=== PATIENT | male | born 1950 | race Caucasian/White ===

== ENCOUNTER 2025-02-08 09:01 | Outpatient (CLI) | payer MEDICARE, SELFPAY ==
--- OUTSIDE RECORDS SUMMARY | 2025-01-23 13:20 | XMS_ITS | Encounter Summary ---
Author Organization [facility] Address [address] [place] [address] Care Team Providers Care Dietetic Tech Name Role Phone Randi Mackenzie APRN Primary Care Provider Reason for Referral * Consultation (Routine) - Authorized Specialty Diagnoses / Procedures Referred By Nikko carlos Referred To Contact Orthopaedic Surgery Diagnoses Chronic pain of both shoulders [place] [address] Phone: tel: fax: Referral ID Status Reason Start Date Expiration Date Visits Requested Visits Authorized [id number] Authorized Specialty Services Required 01/23/2025 07/25/2026 [address] sapp needs shoulders injected Reason for Visit * Reason Comments Shoulder Pain Left shoulder to elb ow pain Encounter Details Date Type Department Care Team (Late st Contact Info) Description 01/23/2025 1:20 PM EDT Office Visit [facility] [place] [address] [place] [address] Chronic pain of both shoulders (Primary Dx) Social History Tobacco Use Types Packs/Day Years Used Date Smoking Tobacco: Former Cigarettes 1 60 Passive Smoke Exposure: Current Smokeless Tobacco: Never Tobacco Cessation:Counseling Given: Not Answered Alcohol Use Standard Drinks/Week Comments No 0 (1 standard drink = 0.6 oz pur e alcohol) PHQ-2 Answer Date Recorded Patient Health Questionnaire-2 Score 0 01/23/2025 PHQ-9 Answer Date Recorded Patient Health Questionnaire-9 Score 0 01/23/2025 Humiliation, Afraid, Rape, and Kick questionnair e Answer Date Recorded Within the last year, have y ou been afraid of your partner or ex-partner? No 01/23/2025 Within the last year, have y ou been humiliated or emotionally abused in other ways by your partner or ex-partner? No Within the last year, have y ou been kicked, hit, slapped, or otherwise physically hurt by your partner or ex-partner? No 01/23/2025 Within the last year, have y ou been raped or forced to have any kind of sexual activity by your partner or ex-partner? No 01/23/2025 Hunger Vital Sign Answer Date Recorded Within the past 12 months, y ou worried that your food would run out before you got the money to buy more. Never true 01/24/20 25 Within the past 12 months, t he food you bought just didn't last and you didn't have money to get more. Never true 01/23/2025 PRAPARE - Transportation Answer Date Re corded In the past 12 months, has l ack of transportation kept you from medical appointments or from getting medications? No 01/14 In the past 12 months, has l ack of transportation kept you from meetings, work, or from getting things needed for daily living? No 01/23/2025 Housing Stability Vital Sign Answer Andrew e Recorded In the last 12 months, was t here a time when you were not able to pay the mortgage or rent on time? No 01/23/2025 In the past 12 months, how m any times have you moved where you were living? 0 01/23/2025 At any time in the past 12 m [facility], were you homeless or living in a [place] facility (including now)? No 01/23/2025 [facility] Utilities Answer Date Recorded In the past 12 months has th e electric, gas, oil, or water [email or web address] threatened to shut off services in your home? No 01/23/2025 Safety and Environment Answer Date Johnny rded Do you worry that your child may have been physically abused? No 12/28/2023 Do you worry that your child may have been sexua lly abused? No 12/28/2023 Are there any guns kept in o r around your home or where your child spends time? No 12/28/2023 Guns Unloaded or Locked Away Not on file PHQ-2A Answer Date Recorded Patient Health Questionnaire-2 Score 2 11/03/2022 Sex and Gender Information Value Date Recorded Sex Assigned at Male 05/02/2021 6:02 PM EST Legal Sex Male 6:20 PM EDT Gender Identity Male 05/02/2021 6:02 PM EST Sexual Orientation Not on file documented as of this encounter Last Filed Vital Signs Vital Sign Reading Time Taken Comments Blood Pressure 92/60 01/23/2025 1:17 PM EDT Pulse 71 01/23/2025 1:17 PM EDT Temperature 36.8 C (98.3 F) 01/23/2025 1:17 PM EDT Respiratory Rate 18 01/23/2025 1:17 PM EDT Oxygen Saturation 96% 01/23/2025 1:1 7 PM EDT 3 liters of oxygen nasal canula Inhaled Oxygen Concentration - - Weight 72.6 kg (160 lb) 01/23/2025 1:17 PM EDT Height 172.7 cm (5' 8 ) 01/23/2025 1:17 PM EDT Body Mass Index 24.33 01/23/2025 1:17 PM EDT documented in this encounter Functional Status * Over the past 2 weeks, how often have you been bothered by any of the following problems? Question Answer Date of Assessment Author Little interest or pleasure in doing things Not at all 01/23/2025 1:28 PM EDT Rosaura Smalls Feeling down, depressed, or hopeless Not at all 01/23/2025 1:28 PM EDT Rosaura Smalls Patient Health Questionnaire -2 Score 0 01/23/2025 1:28 PM EDT Rosaura Smalls * Question Answer Date of Assessment Author Trouble falling or staying a sleep, or sleeping too much Not at all 01/23/2025 1:28 PM Rosaura Gann Feeling tired or having cinthia le energy Not at all 01/23/2025 1:28 PM Rosaura Gann Poor appetite or overeating Not at all 01/23/2025 1: 28 PM Rosaura Gann Feeling bad about yourself - or that you are a failure or have let yourself or your family down Not at all 01/23/2025 1:28 PM Rosaura Gann Trouble concentrating on thi ngs, such as reading the newspaper or watching television Not at all 01/23/2025 1:28 PM Rosaura Gann Moving or speaking so slowly that other people could have noticed? Or the opposite - being so fidgety or restless that you have been moving around a lot more than usual. Not at all 01/23/2025 1:28 PM Rosaura Nunez Thoughts that you would be b shelli off or hurting yourself in some way Not at all 01/23/2025 1:28 PM Rosaura Gann Patient Health Questionnaire -9 Score 0 01/23/2025 1:28 PM Rosaura Gann * Calculated C-SSRS Risk Score (Lifetime/Recent) Answer Date of Assessment Author No Risk Indicated 01/23/2025 1:29 PM Rosaura Nunez * How difficult have these problems made it for you to do your work, take care of things at home, or get along with other people? Answer Date of Assessment Author Not difficult at all 01/23/2025 1:28 PM Rosaura Dejesus * Question Answer Date of Assessment Author 1. Wish to be (Past 1 Month) No 025 1:29 PM Rosaura Gann 2. Non-Specific Active Suici ronal Thoughts (Past 1 Month) No 01/23/2025 1:29 PM Rosaura Gann 6. Suicidal Behavior (Lifetime) No 1:29 PM Rosaura Gann documented as of this encounter Miscellaneous Notes * Clinician Note - Rosaura Smalls - 01/23/2025 1:20 PM EDT Fall risk protocol in place, pt in chair with arms * Progress Notes - Gurdeep Randisubhash Ang APRN - 01/23/2025 1:20 PM EDT Office Progress Note Subjective Corona Doherty is a 74 y.o. male who presents for Shoulder Pain (Left shoulder to elbow pain ). History of Present Illness The patient presents for evaluation of shoulder pain, back pain, and breathing issues. He reports experiencing sharp pain in his shoulders, which extends down to his elbow. This pain hasbeen present for approximately 6 months and affects his ability to perform tasks independently, such as getting up from a seated position. He finds some relief from the application of Biofreeze. An appointment with Dr. Cornelius is scheduled for next month to discuss potential steroid injections for his shoulder pain. His activity level is low, with most of his time spent sitting. He continues to experience back pain, and adjustments have been made to his treatment plan. He mentions a tingling sensation in his leg, which was alleviated by reducing the intensity of his treatment by one notch. His appetite is good, although he tends to eat more at night than during the day. His breathing appears to be normal, but he would like it to be checked during this visit. He saw Dr. Montesinos yesterday, who prescribed an additional medication. He was advised to take only one dose per day as it may cause dizziness, and to stop the medication if dizziness occurs. Diet: He tends to eat more at night than during the day. The following sections have been reviewed and updated during this encounter: Allergies Meds Objective Blood pressure 92/60, pulse 71, temperature 36.8 ??C (98.3 ??F), temperature source Oral, resp. rate 18, height 1.727 m (5' 8 ), weight 72.6 kg (160 lb), SpO2 96%. Body mass index is 24.33 kg/m??. Physical Exam Vitals and nursing note reviewed. Constitutional: Appearance: He is normal weight. Cardiovascular: Rate and Rhythm: Normal rate and regular rhythm. Pulses: Normal pulses. Heart sounds: Normal heart sounds. Pulmonary: Effort: Pulmonary effort is normal. Breath sounds: Normal breath sounds. Neurological: General: No focal deficit present. Mental Status: He is alert and oriented to person, place, and time. Psychiatric: Mood and Affect: Mood normal. Behavior: Behavior normal. Thought Content: Thought content normal. Judgment: Judgment normal. Assessment/Plan Diagnoses and all orders for this visit: Chronic pain of both shoulders - Ambulatory referral to Orthopaedic Surgery Assessment & Plan 1. Shoulder pain: - The patient's shoulder pain has been ongoing for approximately 6 months, characterized by sharp pain extending from the shoulders to the elbows. - A referral for steroid injections in the shoulder joints is recommended. He is advised to contactDr. Cornelius to discuss the possibility of shoulder injections during his upcoming appointment next month. If Dr. Cornelius is unable to provide the injections, arrangements will be made for them to be administered locally. On getting ready to leave changed mind will do with Dr sapp 2. Back pain: - The patient reports that his back pain persists, but adjustments to his treatment have been made to manage the pain and associated leg tingling. - He is advised to continue with the current management plan and monitor for any changes in symptoms. 3. Breathing issues: - A slight wheeze was noted on one side during the examination, but overall, his breathing is improved compared to previous visits. - He is advised to continue monitoring his breathing and report any significant changes. Verbal consent was obtained to use ambient listening technology to assist in the documentation of the encounter: yes documented in this encounter Plan of Treatment Scheduled Referrals Name Type Priority Associated Diagnoses Order Schedule Ambulatory referral to Orthopaedic Surgery Outpatient Referral Routine Chronic pain of both shoulders Ordered: 01/23/2025 documented as of this encounter Visit Diagnoses Diagnosis Chronic pain of both shoulders- Primary documented in this encounter Additional Health Concerns Assessment Noted Time PHQ-9 Depression Total Score: 0 01/24/20 25 1:28 PM EDT A fall risk assessment has been complete d for the patient 01/23/2025 1:27 PM EDT A Body Mass Index follow-up plan has been documented for the patient 01/23/2025 1:44 PM EDT documented as of this encounter Care Teams Dietetic Tech Relationship Specialty Start Date End Date Randi Mackenzie APRN [address] [place] [address] PCP - General 09/26/20 documented as of this encounter
--- OUTSIDE RECORDS SUMMARY | 2025-02-08 09:19 | XMS_ITS | Encounter Summary ---
Author Organization Healthcare Address [address] [place] [address] Care Team Providers Care Dandy Tender Name Role Phone Angel Tan APRN Primary Care Provider [phone] Gely Carreon LPN Unavailable Unavailable Encounter Details Date Type Department Care Team (Late st Contact Info) Description 09/28/2021 Outside Procedure External Location [address] [place] [address] Angel Tan EMBEDDED FIRMWARE DEVELOPER [address] [place] [address] Social History Tobacco Use Types Packs/Day Years Used Date Smoking Tobacco: Every Day Cigarettes 2 60 Smokeless Tobacco: Never Alcohol Use Standard Drinks/Week Comments No 0 (1 standard drink = 0.6 oz pur e alcohol) PHQ-2 Answer Date Recorded Patient Health Questionnaire-2 Score 0 04/28/2021 Sex and Gender Information Value Date Recorded Sex Assigned at Male 05/02/2021 6:02 PM EST Legal Sex Male 6:20 PM EDT Gender Identity Male 05/02/2021 6:02 PM EST Sexual Orientation Not on file COVID-19 Exposure Response Date Recorded In the last 10 days, have yo u been in contact with someone who was confirmed or suspected to have Coronavirus/COVID-19? No / Unsure 09/28/2021 8:30 AM EDT documented as of this encounter Plan of Treatment Not on file documented as of this encounter Procedures Procedure Name Priority Date/Time Associated Diagnosis Comments XR CHEST 2 VIEWS 09/28/2021 9:03 AM EDT documented in this encounter Results * XR Chest 2 Views (09/28/2021 9:03 AM EDT) Anatomical Region Laterality Modality Chest Radiographic Deanna ging 09/28/2021 9:03 AM EDT Narrative 09/28/2021 5:04 [place] [address] Name: CORONA MIN Exam Date: 09/28/2021 : 1950 Age 71 Gender: M Physician: ANGEL TAN Facility: [facility] Facility HSV: Outpatient Exam: CHEST 2 VIEWS CHEST, 2 views HISTORY: Shortness of breath. COMPARISON: September 18, 2021. FINDINGS: Slight interval improvement in left basilar airspace opacity. Similar-appearing right apical nodular scarring. There is no evidence of effusion or other pleural disease. The mediastinum has a normal appearance. The cardiac silhouette is unremarkable. Prior median sternotomy. Left atrial appendage device. IMPRESSION: Slight interval improvement in left basilar airspace opacity. Otherwise, no acute cardiopulmonary process. Dictated By: Harjit Cornejo Transcribed By: Harjit Silva Transcribed On: 09/28/2021 9:21 AM Electronically signed by: Harjit Cornejo 09/28/2021 Thank you for referring CORONA MIN to [facility]. Legally authenticated by ZACHERY LYMAN 2021-09-28 09:21:24 Procedure Note Provider, [facility] [place] - 09/28/2021 [place] [address] Name: CORONA MIN Exam Date: 09/28/2021 : 1950 Age 71 Gender: M Physician: ANGEL TAN Facility: [facility] Facility HSV: Outpatient Exam: CHEST 2 VIEWS CHEST, 2 views HISTORY: Shortness of breath. COMPARISON: September 18, 2021. FINDINGS: Slight interval improvement in left basilar airspace opacity. Similar-appearing right apical nodular scarring. There is no evidence of effusion or other pleural disease. The mediastinumhas a normal appearance. The cardiac silhouette is unremarkable. Prior median sternotomy. Leftatrial appendage device. IMPRESSION: Slight interval improvement in left basilar airspaceopacity. Otherwise, no acute cardiopulmonary process. Dictated By: Harjit Cornejo Transcribed By: Harjit Silva Transcribed On: 09/28/2021 9:21 AM Electronically signed by: Harjit Cornejo 09/28/2021 Thank you for referring CORONA MIN to [facility]. Legally authenticated by ZACHERY LYMAN 2021-09-28 09:21:24 us Angel Tan EMBEDDED FIRMWARE DEVELOPER IMG XR PROCEDURES Final Res ult documented in this encounter Visit Diagnoses Not on filedocumented in this encounter Additional Health Concerns Infection Onset Date Last Indicated Resolved Time COVID-19 Rule-Out 05/04/2023 05/04/2023 05/04/2023 9:55 PM EST COVID-19 Rule-Out 01/17/2024 01/17/2024 01/17/2024 8:20 PM EDT Assessment Noted Time A fall risk assessment has been complete d for the patient 09/18/2021 11:20 AM EDT documented as of this encounter Care Teams Dandy Tender Relationship Specialty Start Date End Date Angel Tan APRN [address] [place] [address] PCP - General 09/26/20 Gely Carreon LPN [employer] [address] TCM Nurse 09/02/21 10/02/21 documented as of this encounter
--- OUTSIDE RECORDS SUMMARY | 2025-02-08 09:19 | XMS_ITS | Clinical Summary ---
Author Organization [employer] ([place], [place], [place], [place]) Address [address] [place] [address] Care Team Providers Care Hotel Yardperson Name Role Phone Randi Mackenzie HOTEL SERVICE SUPERVISOR Primary Care Provider [phone] Allergies No known active allergies Medications atorvastatin (LIPITOR) 20 MG tablet Take 1 tablet (20 mg total) by mouth daily. Active morphine (MSIR) 15 MG tablet Take 1 tablet (15 mg total) by mouth every 4 (four) hours as needed for Pain. Active PARoxetine (PAXIL) 20 MG tablet Take 1 tablet (20 mg total) by mouth every morning. Active albuterol (PROVENTIL) 2.5 mg /3 mL (0.083 %) nebulizer solution Take 3 mLs (2.5 mg total) by nebulization every 6 (six) hours as needed for Wheezing. Active aspirin 81 MG chewable tablet Take 81 mg by mouth daily. Active gabapentin (NEURONTIN) 600 MG tablet Take 1 tablet (600 mg total) by mouth 2 (two) times daily. Active guaiFENesin (Mucus-ER MAX) 1,200 mg Ta12 Take by mouth. A ctive multivitamin capsule Take 1 capsule by mouth daily. Active omeprazole (PriLOSEC) 40 MG capsule Take 1 capsule (40 mg total) by mouth daily. Active albuterol HFA (VENTOLIN HFA) 90 mcg/actuation inhaler Inhale 1 puff by mouth via inhaler every 6 (six) hours as needed for Wheezing. Active cholecalciferol, vitamin D3, 25 mcg (1,000 unit) capsule Take 1 capsule (1,000 Units total) by mouth daily. Active vit C/E/zinc/lutein/ze axanthin (OCUVITE EYE HEALTH ORAL) Take by mouth. Active tiotropium (SPIRIVA) 18 mcg inhalation capsule Inhale 1 capsule (18 mcg total) by mouth via inhaler daily. Active cimetidine (TAGAMET) 200 MG tablet Take 1 tablet (200 mg total) by mouth 4 (four) times daily. Active traZODone (DESYREL) 100 MG tablet Take 1 tablet (100 mg total) by mouth nightly. Active donepeziL (ARICEPT ODT) 10 MG disintegrating tablet Take 1 tablet (10 mg total) by mouth nightly. Active losartan (COZAAR) 25 MG tablet Take 1 tablet (25 mg total) by mouth daily Start medication in 2 weeks. 90 tablet 1 05/24/19 24 Active carvediloL (Coreg) 3.125 MG tablet Take 1 tablet (3.125 mg total) by mouth 2 (two) times daily. 180 tablet 1 05/24/19 24 Active magnesium oxide (MAG-OX) 400 mg (241.3 mg magnesium) tablet Take 1 tablet by mouth once daily 90 tablet 3 06/19/19 24 Active Active Problems No known active problems Social History Tobacco Use Types Packs/Day Years Used Date Smoking Tobacco: Every Day Cigarettes Smokeless Tobacco: Never Tobacco Cessation:Ready to Q uit: Yes; Counseling Given: Yes Food Insecurity Answer Date Recorded Food run out past 12 months Not on file 01/2024 Food did not last past 12 months Not on file 05/24/2023 Employment Answer Date Recorded Help finding and keeping a job Not on file 0 05/24/2023 Family and Community Support Answer Andrew e Recorded Help with Day to Day Activities Not on file 05/24/2023 Feeling Lonely or Isolated Not on file 05/24 Educational Attainment Answer Date Johnny rded Speak language other than Guyanese at home Not on file 05/24/2023 Want help with school or training Not on file 05/24/2023 Substance Use Answer Date Recorded Used prescription meds for non-medical reasons N ot on file 05/24/2023 Used illegal drugs past 12 months Not on file 05/24/2023 Sex and Gender Information Value Date Recorded Sex Assigned at Not on file Legal Sex Male 5:56 PM CDT Gender Identity Not on file Sexual Orientation Not on file Last Filed Vital Signs Vital Sign Reading Time Taken Comments Blood Pressure 119/79 05/19/2023 11:25 AM EST Pulse 57 05/19/2023 11:25 AM EST Temperature - - Respiratory Rate 20 05/19/2023 11:2 5 AM EST Oxygen Saturation 98% 05/19/2023 11: 25 AM EST O2 at 2 liters/Innogen Inhaled Oxygen Concentration - - Weight 65.6 kg (144 lb 9.6 oz) 05/04/2023 2:02 PM EST Height 172.7 cm (5' 8 ) 05/04/2023 2:02 PM EST Body Mass Index 21.99 05/04/2023 2:02 PM EST Plan of Treatment Health Maintenance Due Date Last Done Comments Medicare Initial AWV [id number] CT Colonography 1950 Colonoscopy 1950 Colorectal Cancer Screening 1950 FOBT/FIT 1950 Fit-DNA (Cologuard) 1950 Sigmoidoscopy 1950 Depression Screening (12+) 1962 Hepatitis C Screening 1968 DTAP/TDAP/TD VACCINES (1 - Tdap) 1969 Respiratory Syncytial Virus (RSV) Adult or (1 - Risk 60-74 years 1-dose series) 2010 Shingles Vaccine (Zoster) (2 of 2) 05/11/20182017 Tobacco Cessation Counseling and Screening (12+) 05/04/2024 05/04/2023 Falls Risk Screening 05/16/2024 COVID-19 VACCINE (5 - 2024-2 6 season) 2025 07/09/2022, 07/09/2022, 04/06/2021, Additional history exists Influenza Vaccine (#1) 2025 3, 03/02/2022, 03/19/2021, Additional history exists Pneumococcal 50+ years Completed 1, 03/16/2018, 02/28/2017 Insurance [place]ICARE [place] [address] Care Teams Hotel Yardperson Relationship Specialty Start Date End Date Randi Mackenzie, MIESHA [address] [place] [address] [place] [address] PCP - General Nurse Practitioner 10/29/22
--- OUTSIDE RECORDS SUMMARY | 2025-02-08 09:19 | XMS_ITS | Encounter Summary ---
Author Organization [employer] ([place], [place], [place], [place]) Address [address] [place] [address] Care Team Providers Care Weatherization Field Technician Name Role Phone Randi Mackenzie FRAME SAMPLE AND PATTERN SUPERVISOR Primary Care Provider [phone] Reason for Visit * Reason Comments Medication Refill Encounter Details Date Type Department Care Team (Late st Contact Info) Description 07/01/2024 Refill [facility] Cardiology [address] [place] [address] John Lang MD [address] [facility] [address] [place] [address] Social History Tobacco Use Types Packs/Day Years Used Date Smoking Tobacco: Every Day Cigarettes Smokeless Tobacco: Never Food Insecurity Answer Date Recorded Food run [...] Date Johnny rded Speak language other than Italian at home Not on file 05/24/2023 Want [...] on file Sexual Orientation Not on file documented as of this encounter Plan of Treatment Not on file documented as of this encounter Visit Diagnoses Not on filedocumented in this encounter Care Teams Weatherization Field Technician Relationship Specialty Start Date End Date Randi Mackenzie, FRAME SAMPLE AND PATTERN SUPERVISOR [address] [facility] [place] [address] [place] [address] PCP - General Nurse Practitioner 10/29/22 documented as of this encounter
--- OUTSIDE RECORDS SUMMARY | 2025-02-08 09:19 | XMS_ITS | Encounter Summary ---
Author Organization Healthcare Address [address] [place] [address] Care Team Providers Care Biomedical Electronics Technician Name Role Phone Angel Tan APRN Primary Care Provider Gely Carreon LPN Unavailable Unavailable Encounter Details Date Type Department Care Team (Late st Contact Info) Description 05/29/2021 Outside Procedure External Location [address] [place] [address] Angel Tan DISTRIBUTION OPERATIONS SUPERVISOR [address] [place] [address] Social History Tobacco Use Types [...] Exposure Response Date Recorded In the last month, have you been in contact with someone who was confirmed or suspected to have Coronavirus / COVID-19? Unable to assess 05/20/2021 8:49 AM EST documented as of this encounter Plan of Treatment Not on file documented as of this encounter Procedures Procedure Name Priority Date/Time Associated Diagnosis Comments CT ABDOMEN PELVIS W IV CONTRAST 05/29/2021 11:26 AM EST documented in this encounter Results * CT Abdomen Pelvis w IV Contrast (05/29/2021 11:26 AM EST) Anatomical Region Laterality Modality Abdomen, Pelvis Computed Tomogra phy 05/29/2021 11:2 6 AM EST Narrative 05/29/2021 5:25 [place] [address] Name: CORONA MIN Exam Date: 05/29/2021 : 1950 Age 70 Gender: M Physician: ANGEL TAN Facility: [facility] Facility HSV: Outpatient Exam: CT ABD PEL W/ (IV ORAL) CT ABDOMEN AND PELVIS WITH CONTRAST TECHNIQUE: IV contrast enhanced exam. HISTORY: Weight loss. COMPARISON: 06/03/2014. FINDINGS: ABDOMEN: Exophytic cyst of the posterior medial left kidney is noted. Remaining solid organs are normal. Postcholecystectomy changes are present. No bowel obstruction or small bowel wall thickening is present. However, there is thickening of the stomach diffusely. Stomach is poorly distended. Thickening could be artifact from poor distention. EGD may be considered. Alternatively, upper GI could be performed as well. Central mesenteric vessels appear widely patent. There is no evidence of biliary obstruction. No ascites or adenopathy is present. PELVIS: Pelvic bowel loops are unremarkable. Tiny right inguinal hernia is noted containing fat. Bladder is unremarkable. Appendix is not visualized. There is no pelvic mass. IMPRESSION: 1. Possible gastric wall thickening versus poor distention. 2. Otherwise unremarkable. This study was performed using automated techniques to achieve radiation exposure as low as reasonably achievable. Dictated By: GLYNN PEREZ Transcribed By: rubi steiner Transcribed On: 05/29/2021 3:41 PM Electronically signed by: GLYNN PEREZ 05/29/2021 Thank you for referring CORONA MIN to [facility]. Legally authenticated by CHRIS ZAMBRANO 2021-05-29 17:13:52 Procedure Note Provider, Dilia [place] - 05/29/2021 [id number] [place] [address] Name: CORONA MIN Exam Date: 05/29/2021 : 1950 Age 70 Gender: M Physician: ANGEL TAN Facility: [facility] Facility HSV: Outpatient Exam: CT ABD PEL W/ (IV ORAL) CT ABDOMEN AND PELVIS WITH CONTRAST TECHNIQUE: IV contrast enhanced exam. HISTORY: Weight loss. COMPARISON: 06/03/2014. FINDINGS: ABDOMEN: Exophytic cyst of the posterior medial left kidney is noted. Remaining solid organs are normal. Postcholecystectomy changesare present. No bowel obstruction or small bowel wall thickening is present.However, there is thickening of the stomach diffusely. Stomach is poorly distended. Thickening could be artifact from poor distention. EGD maybe considered. Alternatively, upper GI could be performed as well. Central mesenteric vessels appear widely patent. There is no evidenceof biliary obstruction. No ascites or adenopathy is present. PELVIS: Pelvic bowel loops are unremarkable. Tiny right inguinal herniais noted containing fat. Bladder is unremarkable. Appendix is not visualized. There is no pelvic mass. IMPRESSION: 1. Possible gastric wall thickening versus poor distention. 2. Otherwise unremarkable. This study was performed using automated techniques to achieve radiation exposure as low as reasonably achievable. Dictated By: GLYNN PEREZ Transcribed By: rubi steiner Transcribed On: 05/29/2021 3:41 PM Electronically signed by: GLYNN PEREZ 05/29/2021 Thank you for referring CORONA MIN to [facility]. Legally authenticated by CHRIS ZAMBRANO 2021-05-29 17:13:52 Angel Tan DISTRIBUTION OPERATIONS SUPERVISOR IMG CT PROCEDURES Final Res ult documented in this encounter Visit Diagnoses Not on filedocumented in this encounter Additional Health Concerns Infection Onset Date Last Indicated Resolved Time COVID-19 Rule-Out 05/04/2023 05/04/2023 05/04/2023 9:55 PM EST COVID-19 Rule-Out 01/17/2024 01/17/2024 01/17/2024 8:20 PM EDT Assessment Noted Time A fall risk assessment has been complete d for the patient 05/20/2021 9:11 AM EST documented as of this encounter Care Teams Biomedical Electronics Technician Relationship Specialty Start Date End Date Angel Tan APRN [address] [place] [address] PCP - General 09/26/20 Gely Carreon LPN [employer] [place] [address] TCM Nurse 09/02/21 10/02/21 documented as of this encounter
--- OUTSIDE RECORDS SUMMARY | 2025-02-08 09:19 | XMS_ITS | Clinical Summary ---
Author Organization [facility] Address [address] [place] [address] Care Team Providers Care Electrician Rectifier Maintenance Name Role Phone TanRandi Ashia VILLAFANA Primary Care Provider [phone] Allergies No known active allergies Medications ipratropium-albu terol (Duo-Neb) 0.5-2.5 mg/3 mL nebulizer solution 1 Active Aspirin Low Dose 81 MG EC tablet Take 1 tablet (81 mg) by mouth 1 (one) time each day. 2 Active gabapentin (Neurontin) 600 MG tablet Take 1 tablet (600 mg) by mouth. 1 in the morning and 2 at bedtime 2 Active cimetidine (Tagamet) 200 MG tablet Take 1 tablet (200 mg) by mouth every night. Active guaiFENesin (Mucinex) 600 MG 12 hr tablet Take 2 tablets (1,200 mg) by mouth 2 (two) times a day. Do not crush, chew, or split. Active nystatin (Mycostatin) 646551 UNIT/GM powder 2 Active morphine (MSIR) 15 MG tablet Take 1 tablet (15 mg) by mouth every 6 (six) hours. Active donepezil (Aricept) 10 MG tablet TAKE 1 TABLET BY MOUTH ONCE DAILY FOR 90 DAYS 3 Active naloxone (Narcan) 4 mg/0.1 mL nasal spray ADMINISTER A SINGLE SPRAY IN ONE NOSTRIL UPON SIGNS OF OPIOID OVERDOSE. CALL 911. REPEAT AFTER 3 MINUTES IF NO RESPONSE. 3 Active tacrolimus (Protopic) 0.1 % ointment Active ketoconazole (NIZOral) 2 % cream 4 Active Spiriva HandiHaler [address] 1 CAPSULE INTO INHALER AND INHALE THE CONTENTS ONCE DAILY 90 capsule 3 4 Active Additional Information Patient not taking.Reported on 01/23/2025 methocarbamol (Robaxin) 500 MG tablet Take 1 tablet (500 mg) by mouth 2 (two) times a day if needed. 4 Active mupirocin (Bactroban) 2 % ointment Apply 1 Application topically 2 (two) times a day. 4 Active albuterol (Proventil) (2.5 MG/3ML) 0.083% nebulizer solutionIndicati ons:COPD exacerbation (CMS/HCC) USE 1 VIAL IN NEBULIZER 4 TIMES DAILY NEEDED FOR WHEEZING FOR SHORTNESS OF BREATH 360 mL 11 5 Active Additional Information Patient not taking.Reported on 01/23/2025 omeprazole (PriLOSEC) [address] capsuleIndicatio ns:Chronic gastritis without bleeding, unspecified gastritis type Take 1 capsule (40 mg) by mouth 1 (one) time each day. 90 capsule 2 5 Active PARoxetine (Paxil) 20 MG tabletIndication s:Generalized anxiety disorder TAKE 1 TABLET BY MOUTH ONCE DAILY IN THE MORNING 90 tablet 2 5 Active albuterol 108 (90 Base) MCG/ACT inhalerIndicatio ns:COPD with acute exacerbation (CMS/HCC) Inhale 2 puffs 4 times a day. 54 g 11 5 Active triamcinolone (Kenalog) 0.5 % cream APPLY CREAM TOPICALLY TO AFFECTED AREA TWICE DAILY 15 g 3 5 Active hydroCHLOROthiaz mary 12.5 MG PO tablet Take 1 tablet by mouth daily. 30 tablet 5 04/23/20 25 Active Additional Information Patient taking differently:12.5 mg Oral,(No frequency reported), Once daily PRN, Reported on 01/23/2025 MAGnesium-Oxide 400 (240 Mg) MG tablet Take 1 tablet by mouth daily. 90 tablet 3 5 Active Additional Information Patient not taking.Reported on 01/23/2025 ondansetron (Zofran) 4 MG tablet Take 1 tablet by mouth every 8 hours as needed for nausea or vomiting. 20 tablet 2 5 Active traZODone (Desyrel) 100 MG tabletIndication s:Primary insomnia TAKE 2 TABLETS BY MOUTH ONCE DAILY AT NIGHT 180 tablet 1 5 Active atorvastatin (Lipitor) 20 MG tabletIndication s:Paroxysmal atrial fibrillation (CMS/HCC) TAKE 1 TABLET BY MOUTH ONCE DAILY AT NIGHT 90 tablet 1 5 Active Breztri Aerosphere 160-9-4.8 MCG/ACT aerosol Inhale 2 puffs 2 times a day. Active memantine (Namenda) 5 MG tablet Take 1 tablet by mouth 2 times a day. 04/22/20 25 Active Active Problems Problem Noted Date Diagnosed Date Mitral valve regurgitation 07/06/2021 BMI 24.0-24.9, adult 07/06/2021 BPH (benign prostatic hyperplasia) 07/23/2020 Atrial fibrillation 01/25/2018 CHF (congestive heart failure) 09/15/2016 Chronic obstructive pulmonary disease 09/06/2016 Rheumatoid arthritis 08/10/2014 Encounters Date Type Department Care Team Description 01/23/2025 1:20 PM EDT Office Visit [facility] [address] [place] [address] Randi Tan APRN Chronic pain of both shoulders (Primary Dx) 01/23/2025 Travel 12/24/2024 Refill [facility] [address] [place] [address] Randi Tan APRN Paroxysmal atrial fibrillation (CMS/HCC) 12/13/2024 Refill [facility] [address] [place] [address] Randi Tan APRN Primary insomnia 11/21/2024 Results Follow-Up [facility] [address] [place] [address] Randi Tan APRN 11/19/2024 Outside Procedure External Location [address] [place] [address] Randi Tan, ELECTRICAL AND INSTRUMENT ENGINEER 11/12/2024 Orders Only [facility] [address] [place] [address] Randi Tan, ELECTRICAL AND INSTRUMENT ENGINEER 11/08/2024 Telephone [facility] [address] [place] [address] Randi Tan, ELECTRICAL AND INSTRUMENT ENGINEER 11/08/2024 Orders Only [facility] [address] [place] [address] Randi Tan, ELECTRICAL AND INSTRUMENT ENGINEER Shortness of breath (Primary Dx); Edema, unspecified type from Last 3 Months Immunizations Immunization Administration Dates Next Due Hep A, Adult 03/16/2018 Influenza, High-dose, Split Virus, Trivalent, Injectable, preservative free 04/24/2024 Influenza, high-dose, quadrivalent 03/02,03/19/2021,02/27/2020,04/03,02/23/2018,02/28/2017 Influenza, seasonal, injectable 03/25/2023,03/19 Moderna COVID-19 Vaccine (Re d Cap) 12+ years 07/08/2020,06/14/2020 Moderna Covid-19 Vaccine 12y +, Shiraz Protein, Preservative free 04/24/2024,03/25/2023 Pfizer-BioNTech COVID-19 Biv alent (Sandoval Cap) 12+ years (vijay-sucrose) 07/09/2022 Pfizer-BioNTech COVID-19 Vac cine (Wexford Cap) 5y<12y (vijay-sucrose) 03/26/2021,06/26/2020,05/26/2020 Pfizer-BioNTech COVID-19 Vac cine (Purple Cap) 12+ 07/09/2022,04/06/2021,07/08/2020,06/14 Pneumococcal 20-roni Conj Vaccine 03/25/2023 Pneumococcal Conjugate PCV 13 03/19/2021, 017 Pneumococcal Polysaccharide PPV23 03/16/2018 Zoster, Recombinant 03/16/2018 Family History Medical History Relation Name Comments Heart disease Mother Relation Name Status Comments Mother Social History Tobacco Use Types Packs/Day Years [...] any time in the past 12 m [facility], were you homeless or living in a correction (including now)? No 01/23/2025 [facility] Utilities Answer Date Recorded In the past 12 months has th e electric, gas, oil, or water company threatened to shut off services in your [...] PM EST Sexual Orientation Not on file Last Filed [...] Mass Index 24.33 01/23/2025 1:17 PM EDT Plan of Treatment Health Maintenance Due Date Last Done Comments [facility]-Hepatitis C Screening 1950 [facility]-Medicare Annual Wellness (AWV) 1950 [facility]-/Child/Adol SDOH Screenings 1950 [facility]-DTaP,Tdap,and Td Vaccines (1 - Tdap) 1969 CT Colonography 1995 FIT-DNA 1995 FIT 1995 FOBT 1995 Sigmoidoscopy 1995 [facility]-RSV Vaccine: 60+ Years or (1 - Risk 60-74 years 1-dose series) 2010 [facility]-Abdominal Aortic Aneurysm (AAA) Screening 2015 [facility]-Zoster Vaccines (2 of 2) 05/11/2018 03/16/2018 [id number] Vaccine ( season) 2025 04/24/2024, 03/25/2023, 07/09/2022, Additional history exists [facility]-Influenza Vaccine (#1) 01/14/202504/24, 03/25/2023, 03/02/2022, Additional history exists [facility]- SDOH Screenings 07/23/2025 [facility]-Adult SDOH Screenings 07/23/2025 01/23/2025 [facility]-Depression Screening 01/23/2026 01/23/2025, 01/14 Colonoscopy 09/09/2027 09/08/2017 [facility]-Colorectal Cancer Screening 09/09/2027 [facility]-Diabetes: Hemoglobin A1C Discontinued 06/07/2016 [facility]-Hepatitis A Vaccines Aged Out 03/16/2018 No longer eligible based on patient's age to complete this topic [facility]-Pneumococcal Vaccine: 50+ Years Completed 03/25/2023, 03/19/2021, 03/16/2018, Additional history exists HPV Vaccines Aged Out No longer eligi ble based on patient's age to complete this topic [facility]-HIB Vaccines Aged Out No longer e ligible based on patient's age to complete this topic [facility]-IPV Vaccines Aged Out No longer e ligible based on patient's age to complete this topic [facility]-Rotavirus Vaccines Aged Out No lo nger eligible based on patient's age to complete this topic Procedures Procedure Name Priority Date/Time Associated Diagnosis Comments ECHO, ADULT TRANSTHORACIC COMPLETE W/ COLOR AND DOPPLER 11/19/2024 2:46 PM EDT COLONOSCOPY EXTERNAL RESULT 09/08/2017 HEMOGLOBIN A1C Routine 06/07/2016 11:26 AM EST from Last 3 Months or Most Recently Relevant to Health Maintenance Results * Echo, Adult Transthoracic Complete w/ Color and Doppler (11/19/2024 2:46 PM EDT) Anatomical Region Laterality Modality Ultrasound 11/19/2024 2:46 PM EDT Narrative 11/20/2024 12:01 PM EDT [address] [address] Name: CORONA MIN Exam Date: 11/19/2024 : 1950 Age 74 years Gender: M Physician: RANDI TAN Facility: [facility] Facility HSV: Outpatient Exam: ECHO W SPEC COLOR FLOW Reason for Study: SOB SUMMARY Normal LV size with mildly decreased function. The ejection fraction is 45-50%. Left ventricular filling pattern is indeterminate. Moderately dilated left atrium. Moderately dilated right atrium. There is mild aortic regurgitation. There is a normal functioning biological mitral valve prosthesis , mean gradient 5 mm Hg. There is mild tricuspid regurgitation. Normal PA pressure (32 mmHg). INTERPRETATION DETAIL Fair quality study. Left ventricle: The left ventricle is normal in size with mildly decreased systolic function. The ejection fraction is 45-50%. There is top normal LV wall thickness. LV geometry is normal. Global LV hypokinesis without regional heterogeneity,post operative septal bounce The left ventricular filling pattern is indeterminate. Left atrium: The left atrium is moderately dilated. LA volume: 79.0mL, LA volume index: 43.9mL/mA . Right ventricle: The right ventricle is mildly dilated with normal function. RV moderator band noted, normal variant. Right atrium: The right atrium is moderately dilated. Mitral valve: Peak Grad= 10 mmHg and Mean grad= 5 mmHg. There is a biological mitral valve prosthesis. Aortic valve: The aortic valve is normal and trileaflet. The aortic valve is mildly thickened. There is with a valve area of 3.59 rate and cost analyst (Peak grad=6mmHg, Mean grad=3mmHg, LVOT jason=2.40cm, LVOT TVI=17.4cm, Ao TVI=21.9cm). The dimensionless index is 0.79. AV peak unudzmyv=585ln/sec. There is mild aortic regurgitation. Tricuspid valve: The tricuspid valve is normal. There is mild tricuspid regurgitation. PASP= 32 mmHg, RAP=5mmHg. Pulmonic valve: The pulmonic valve is normal. Pericardium: The pericardium is normal. Interatrial septum: The interatrial septum is normal. Aorta: The aorta is normal. The aortic root is normal. The ascending aorta is normal. Aortic dimensions - Ao M-mode= 3.50cm , Ascending=3.70cm. Vena Cava: The inferior vena cava is normal. There is full inspiratory collapse of the IVC. MEASUREMENTS Left Ventricle IVSd: 1.12cm (0.6-1.1cm) PWd: 1.10cm (0.6-1.1cm) Mass Precious: 185g LVMI: 103g/mA (>50-95g/m) LVIDd: 4.62cm (3.7-5.6 cm) LVIDdI: 2.57cm/m2 LVIDs: 3.47cm (1.8-4.2 cm) LVIDsI: 1.93cm/m2 Legally authenticated by RIA Ang 2024-11-20 11:59:47 RWT: 0.48 (<0.42) E to A: 1.82 (0.6-2) E-e prime med: 15.00 E-e prime lat: 13.50 Decel: 486.00ms (168-232ms) Right Ventricle Mid RV Jason: 2.9cm (2.7-3.3cm) Max Valve Velocities AV peak sendy: 125cm/sec LVOT: 98.10cm/sec Pulmonary RAP: 5mmHg PASP: 32mmHg Atria LA AP: 4.8cm LA vol: 79.0mL SEBASTIEN: 43.9mL/mA (16-28ml/m2) Morgan Rodrigues MD Dictated By: MORGAN RODRIGUES Transcribed By: Transcribed On: 11/20/2024 11:59 AM Electronically signed by: MORGAN RODRIGUES 11/20/2024 Thank you for referring CORONA MIN to [facility]. Legally authenticated by RIA Ang 2024-11-20 11:59:47 Procedure Note Provider, Generic [place] - 11/20/2024 [id number] [place] [address] Name: CORONA MIN Exam Date: 11/19/2024 : 1950 Age 74 years Gender: M Physician: RANDI TAN Facility: [facility] Facility HSV: Outpatient Exam: ECHO W SPEC COLOR FLOW Reason for Study: SOB SUMMARY Normal LV size with mildly decreased function. The ejection fraction is 45-50%. Left ventricular filling pattern is indeterminate. Moderately dilated left atrium. Moderately dilated right atrium. There is mild aortic regurgitation. There is a normal functioning biological mitral valve prosthesis , mean gradient 5 mm Hg. There is mild tricuspid regurgitation. Normal PA pressure (32 mmHg). INTERPRETATION DETAIL Fair quality study. Left ventricle: The left ventricle is normal in size with mildly decreased systolic function. The ejection fraction is 45-50%. There is top normal LV wall thickness. LV geometry is normal. Global LV hypokinesis without regional heterogeneity,post operative septal bounce The left ventricular filling pattern is indeterminate. Left atrium: The left atrium is moderately dilated. LA volume: 79.0mL, LA volume index: 43.9mL/mA . Right ventricle: The right ventricle is mildly dilated with normal function. RV moderator band noted, normal variant. Right atrium: The right atrium is moderately dilated. Mitral valve: Peak Grad= 10 mmHg and Mean grad= 5 mmHg. There is a biological mitral valve prosthesis. Aortic valve: The aortic valve is normal and trileaflet. The aortic valve is mildly thickened. There is with a valve area of 3.59 rate and cost analyst (Peak grad=6mmHg, Mean grad=3mmHg, LVOT jason=2.40cm, LVOT TVI=17.4cm, Ao TVI=21.9cm). The dimensionless index is 0.79. AV peak ccdnyszn=729bg/sec. There is mild aortic regurgitation. Tricuspid valve: The tricuspid valve is normal. There is mild tricuspid regurgitation. PASP= 32 mmHg, RAP=5mmHg. Pulmonic valve: The pulmonic valve is normal. Pericardium: The pericardium is normal. Interatrial septum: The interatrial septum is normal. Aorta: The aorta is normal. The aortic root is normal. The ascending aorta is normal. Aortic dimensions - Ao M-mode= 3.50cm , Ascending=3.70cm. Vena Cava: The inferior vena cava is normal. There is full inspiratory collapse of the IVC. MEASUREMENTS Left Ventricle IVSd: 1.12cm (0.6-1.1cm) PWd: 1.10cm (0.6-1.1cm) Mass Precious: 185g LVMI: 103g/mA (>50-95g/m) LVIDd: 4.62cm (3.7-5.6 cm) LVIDdI: 2.57cm/m2 LVIDs: 3.47cm (1.8-4.2 cm) LVIDsI: 1.93cm/m2 Legally authenticated by RIA Ang 2024-11-20 11:59:47 RWT: 0.48 (<0.42) E to A: 1.82 (0.6-2) E-e prime med: 15.00 E-e prime lat: 13.50 Decel: 486.00ms (168-232ms) Right Ventricle Mid RV Jason: 2.9cm (2.7-3.3cm) Max Valve Velocities AV peak sendy: 125cm/sec LVOT: 98.10cm/sec Pulmonary RAP: 5mmHg PASP: 32mmHg Atria LA AP: 4.8cm LA vol: 79.0mL SEBASTIEN: 43.9mL/mA (16-28ml/m2) Morgan Rodrigues MD Dictated By: MORGAN RODRIGUES Transcribed By: Transcribed On: 11/20/2024 11:59 AM Electronically signed by: MORGAN RODRIGUES 11/20/2024 Thank you for referring CORONA MIN to [facility]. Legally authenticated by RIA Ang 2024-11-20 11:59:47 us Randi Tan ELECTRICAL AND INSTRUMENT ENGINEER CV ECHO PROCEDURES Final Re sult * COLONOSCOPY EXTERNAL RESULT (09/08/2017) Anatomical Region Laterality Modality Endoscopy Narrative 09/08/2017 Ordered by an unspecified provider. us External Provider GI PROCEDURE ORDERABLES Final Result * Hemoglobin A1c (06/07/2016 11:26 AM EST) Hemoglobin A1c 5.1 4.7 - 6.0 % [facility] Comment: (NOTE) Glycohemoglobin Reference Range, 0 years and up: 4.7 - 6.0% . Hemoglobin A1c values of 5.7 - 6.4% indicate an increased risk for developing diabetes mellitus (prediabetes). Hemoglobin A1c values greater than or equal to 6.5% are diagnostic of diabetes mellitus. . HbA1c assay performed by an ion-exchange chromatography method that is certified traceable to the DCCT. 06/07/2016 11:2 6 AM EST 06/07/2016 12:09 PM EST Randi Tan APRN LAB BLOOD ORDERABLES Final Result [facility]QUEST from Last 3 Months or Most Recently Relevant to Health Maintenance Insurance MEDICARE [employer] Care Teams Electrician Rectifier Maintenance Relationship Specialty Start Date End Date Randi [place] [address] [place] [address] PCP - General 09/26/20
--- OUTSIDE RECORDS SUMMARY | 2025-02-08 09:19 | XMS_ITS | Encounter Summary ---
Author Organization Healthcare Address [address] [place] [address] Care Team Providers Care Contract Administrative Assistant Name Role Phone Randi Mackenzie APRN Primary Care Provider [phone] Reason for Visit * Reason Comments Med Refill Encounter Details Date Type Department Care Team (Late st Contact Info) Description 10/04/2024 Refill New Site [facility] [address] [place] [address] Randi Mackenzie APRN [address] [place] [address] Social History Tobacco Use Types Packs/Day Years Used Date Smoking Tobacco: Some Days Cigarettes 1 60 Passive Smoke Exposure: Current Smokeless Tobacco: Never Alcohol Use Standard Drinks/Week Comments No 0 (1 standard drink = 0.6 oz pur e alcohol) Humiliation, Afraid, Rape, and Kick questionnair e Answer Date Recorded Within the last year, have y ou been afraid of your partner or ex-partner? No 04/24/2024 Within the last year, have y ou been humiliated or emotionally abused in other ways by your partner or ex-partner? No Within the last year, have y ou been kicked, hit, slapped, or otherwise physically hurt by your partner or ex-partner? No 04/24/2024 Within the last year, have y ou been raped or forced to have any kind of sexual activity by your partner or ex-partner? No 04/24/2024 PHQ-2 Answer Date Recorded Patient Health Questionnaire-2 Score 0 09/19/2024 Hunger Vital Sign Answer Date Recorded Within the past 12 months, y ou worried that your food would run out before you got the money to buy more. Never true 04/24/20 24 Within the past 12 months, t he food you bought just didn't last and you didn't have money to get more. Never true 04/24/2024 PRAPARE - Transportation Answer Date Re corded In the past 12 months, has l ack of transportation kept you from medical appointments or from getting medications? No 04/15 In the past 12 months, has l ack of transportation kept you from meetings, work, or from getting things needed for daily living? No 04/24/2024 Housing Stability Vital Sign Answer Andrew e Recorded In the last 12 months, was t here a time when you were not able to pay the mortgage or rent on time? No 12/28/2023 In the last 12 months, how many places have you lived? 1 12/28/2023 In the last 12 months, was t here a time when you did not have a steady place to sleep or slept in a care home (including now)? No 12/28/2023 PHQ-9 Answer Date Recorded Patient Health Questionnaire-9 Score 0 09/19/2024 Housing Stability Vital Sign Answer Andrew e Recorded In the last 12 months, was t here a time when you were not able to pay the mortgage or rent on time? No 04/24/2024 In the past 12 months, how m any times have you moved where you were living? 1 04/24/2024 At any time in the past 12 m [facility], were you homeless or living in a care home (including now)? No 04/24/2024 Safety and Environment Answer Date Johnny rded Do you worry that your child may have been physically abused? No 12/28/2023 Do you worry that your child may have been sexua lly abused? No 12/28/2023 Are there any guns kept in o r around your home or where your child spends time? No 12/28/2023 Guns Unloaded or Locked Away Not on file Utilities Answer Date Recorded In the past 12 months has th e electric, gas, oil, or water company threatened to shut off services in your home? No 04/24/2024 PHQ-2A Answer Date Recorded Patient Health Questionnaire-2 [...] filedocumented in this encounter Additional Health Concerns Assessment Noted Time PHQ-9 Depression Total Score: 0 09/20/19 25 2:07 PM EDT A fall risk assessment has been complete d for the patient 09/26/2024 1:05 PM EDT A Body Mass Index follow-up plan has been documented for the patient 09/26/2024 1:05 PM EDT documented as of this encounter Care Teams Contract Administrative Assistant Relationship Specialty Start Date End Date Randi Mackenzie APRN [address] [place] [address] PCP - General 09/26/20 documented as of this encounter
--- OUTSIDE RECORDS SUMMARY | 2025-02-08 09:19 | XMS_ITS | Encounter Summary ---
Author Organization Healthcare Address [address] [place] [address] Care Team Providers Care Agent Name Role Phone Randi Mackenzie APRN Primary Care Provider [phone] Gely Carreon LPN Unavailable Unavailable Encounter Details Date Type Department Care Team (Late st Contact Info) Description 09/12/2021 Outside Procedure External Location [address] [place] [address] Provider, Dilia Sepulvedawn Social History Tobacco Use Types Packs/Day Years [...] suspected to have Coronavirus/COVID-19? No / Unsure 09/01/2021 10:38 AM EDT documented as of this encounter Plan of Treatment Not on file documented as of this encounter Procedures Procedure Name Priority Date/Time Associated Diagnosis Comments CT ANGIO HEAD 09/12/2021 7:04 PM EDT documented in this encounter Results * CT Angio Head (09/12/2021 7:04 PM EDT) Anatomical Region Laterality Modality [place] Computed Tomogr aphy 09/12/2021 7:04 PM EDT Narrative 09/12/2021 8:56 PM EDT [facility] [address] [place] [address] Name: CORONA MIN Exam Date: 09/12/2021 : 1950 Age 71 Gender: M Physician: DONTRELL PALMER Facility: [facility] Facility HSV: Outpatient Exam: CTA HEAD W/CONT FINAL REPORT TECHNIQUE: Multiple axial CT angiography images were performed from the foramen magnum to the vertex before and during IV contrast administration. Thin section axial CT images through the neck with IV contrast supplemented with 3-D multiplanar reconstruction. This study was performed with techniques to keep radiation doses as low as reasonably achievable (ALARA). CLINICAL HISTORY: visual dist COMPARISON: CT brain 1 hour prior FINDINGS: CTA HEAD: The major intracranial arterial system is patent without hemodynamically significant stenosis or major vessel occlusion. No aneurysm is identified. CTA neck: Aortic arch:Arch shows no significant narrowing. Great vessel origins are widely patent. Right carotid:No significant atherosclerotic plaque is seen of the cervical common or internal carotid artery.0% stenosis according to the NASCET criteria. Left carotid:No significant atherosclerotic plaque is seen of the cervical common or internal carotid artery.0% stenosis according to the NASCET criteria. Vertebrals: The vertebral arteries are patent. No significant stenosis is present. IMPRESSION: No evidence of vascular injury, aneurysm, hemodynamically significant stenosis or major vessel occlusion of the intracranial arterial system. 0% stenosis of the carotid bulbs by NASCET criteria. Patent vertebral arteries. Authenticated by Tesfaye Ortega MD on 09/12/2021 08:43:54 PMEASTERN Dictated By: Tesfaye Ortega Transcribed By: Transcribed On: 09/12/2021 8:43 PM Electronically signed by: Tesfaye Ortega 09/12/2021 Thank you for referring CORONA MIN to [facility]. Legally authenticated by VIRGINIA Hodge 2021-09-12 20:43:54 Procedure Note Provider, [facility] - 09/12/2021 [facility] [address] [place] [address] Name: CORONA MIN Exam Date: 09/12/2021 : 1950 Age 71 Gender: M Physician: DONTRELL PALMER Facility: [facility] Facility HSV: Outpatient Exam: CTA HEAD W/CONT FINAL REPORT TECHNIQUE: Multiple axial CT angiography images were performed from the foramen magnum to the vertex before and during IV contrast administration. Thin section axial CT images through the neck with IV contrast supplemented with 3-D multiplanar reconstruction. This study was performed with techniques to keep radiation doses as low as reasonably achievable (ALARA). CLINICAL HISTORY: visual dist COMPARISON: CT brain 1 hour prior FINDINGS: CTA HEAD: The major intracranial arterial system is patent without hemodynamically significant stenosis or major vessel occlusion. No aneurysm is identified. CTA neck: Aortic arch:Arch shows no significant narrowing. Great vessel origins are widely patent. Right carotid:No significant atherosclerotic plaque is seen of the cervical common or internal carotid artery.0% stenosis according to the NASCET criteria. Left carotid:No significant atherosclerotic plaque is seen of the cervical common or internal carotid artery.0% stenosis according to the NASCET criteria. Vertebrals: The vertebral arteries are patent. No significant stenosis is present. IMPRESSION: No evidence of vascular injury, aneurysm, hemodynamically significant stenosis or major vessel occlusion of the intracranial arterial system. 0% stenosis of the carotid bulbs by NASCET criteria. Patent vertebral arteries. Authenticated by Tesfaye Ortega MD on 09/12/2021 08:43:54 PMEASTERN Dictated By: Tesfaye Ortega Transcribed By: Transcribed On: 09/12/2021 8:43 PM Electronically signed by: Tesfaye Ortega 09/12/2021 Thank you for referring CORONA MIN to [facility]. Legally authenticated by VIRGINIA Hodge 2021-09-12 20:43:54 us Generic [place] Provider IMG CT PROCEDURES Fi nal Result documented in this encounter Visit Diagnoses Not on filedocumented in this encounter Additional Health Concerns Infection Onset Date Last Indicated Resolved Time COVID-19 Rule-Out 05/04/2023 05/04/2023 05/04/2023 9:55 PM EST COVID-19 Rule-Out 01/17/2024 01/17/2024 01/17/2024 8:20 PM EDT Assessment Noted Time A fall risk assessment has been complete d for the patient 09/01/2021 11:27 AM EDT documented as of this encounter Care Teams Agent Relationship Specialty Start Date End Date Randi Mackenzie APRN [address] [place] [address] PCP - General 09/26/20 Gely Carreon LPN [employer] [place] [address] TCM Nurse 09/02/21 10/02/21 documented as of this encounter
--- OUTSIDE RECORDS SUMMARY | 2025-02-08 09:19 | XMS_ITS | Encounter Summary ---
Author Organization Healthcare Address [address] [place] [address] Care Team Providers Care Wood Casket Assembler Name Role Phone Angel Tan APRN Primary Care Provider [phone]- [phone] Encounter Details Date Type Department Care Team ([facility] st Contact Info) Description 06/15/2023 Outside Procedure External Location [address] [place] [address] Angel Tan APRN [address] [place] [address] Social History Tobacco Use Types Packs/Day Years Used Date Smoking Tobacco: Every Day Cigarettes 1 60 Passive Smoke Exposure: Current Smokeless Tobacco: Never Alcohol Use Standard Drinks/Week Comments No 0 (1 standard drink = 0.6 oz pur e alcohol) PHQ-2 Answer Date Recorded Patient Health Questionnaire-2 Score 0 05/25/2023 PHQ-2A Answer Date Recorded Patient Health Questionnaire-2 [...] Associated Diagnosis Comments XR CHEST 2 VIEWS 06/15/2023 12:5 4 PM EST documented in this encounter Results * XR Chest 2 Views (06/15/2023 12:54 PM EST) Anatomical Region Laterality Modality Chest Digital Radiogra phy 06/15/2023 12:5 4 PM EST Narrative 06/15/2023 1:48 [place] [address] Name: CORONA MIN Exam Date: 06/15/2023 : 1950 Age 73 Gender: M Physician: ANGEL TAN Facility: [facility] Facility HSV: Outpatient Exam: CHEST 2 VIEWS CHEST, 2 views HISTORY: Cough. COMPARISON: January 15, 2022. FINDINGS: Prominent interstitial markings, likely chronic. Sternal wires are present. Left atrial appendage clip noted. Intraspinal catheter present. Apical pleural thickening noted. There is no evidence of effusion. The mediastinum has a normal appearance. The cardiac silhouette is unremarkable. No acute osseous changes. IMPRESSION: No acute cardiopulmonary process. Dictated By: DAVID RIVERS Transcribed By: David Rivers Transcribed On: 06/15/2023 1:29 PM Electronically signed by: DAVID RIVERS 06/15/2023 Thank you for referring CORONA MIN to [facility]. Legally authenticated by POPE DAVID Robin 2023-06-15 13:29:48 Procedure Note Provider, [facility] [place] - 06/15/2023 [place] [address] Name: CORONA MIN Exam Date: 06/15/2023 : 1950 Age 73 Gender: M Physician: ANGEL TAN Facility: [facility] Facility HSV: Outpatient Exam: CHEST 2 VIEWS CHEST, 2 views HISTORY: Cough. COMPARISON: January 15, 2022. FINDINGS: Prominent interstitial markings, likely chronic. Sternal wiresare present. Left atrial appendage clip noted. Intraspinal catheter present. Apical pleural thickening noted. There is no evidence of effusion. The mediastinum has a normal appearance.The cardiac silhouette is unremarkable. No acute osseous changes. IMPRESSION: No acute cardiopulmonary process. Dictated By: DAVID RIVERS Transcribed By: David Rivers Transcribed On: 06/15/2023 1:29 PM Electronically signed by: DAVID RIVERS 06/15/2023 Thank you for referring CORONA MIN to [facility]. Legally authenticated by POPE DAVID Robni 2023-06-15 13:29:48 us Angel Tan APRN IMG XR PROCEDURES Final Res ult documented in this encounter Visit Diagnoses Not on filedocumented in this encounter Additional Health Concerns Infection Onset Date Last Indicated Resolved Time COVID-19 Rule-Out 01/17/2024 01/17/2024 01/17/2024 8:20 PM EDT Assessment Noted Time A fall risk assessment has been complete d for the patient 05/25/2023 2:23 PM EST A Body Mass Index follow-up plan has been documented for the patient 05/25/2023 3:00 PM EST documented as of this encounter Care Teams Wood Casket Assembler Relationship Specialty Start Date End Date Angel Tna APRN [address] [place] [address] PCP - General 09/26/20 documented as of this encounter
--- OUTSIDE RECORDS SUMMARY | 2025-02-08 09:19 | XMS_ITS | Encounter Summary ---
Author Organization Healthcare Address [address] [place] [address] Care Team Providers Care Signals Analyst Name Role Phone Angel Tan APRN Primary Care Provider [phone] Gely Carreon LPN Unavailable Unavailable Encounter Details Date Type Department Care Team (Late st Contact Info) Description 09/16/2021 Outside Procedure External Location [address] [place] [address] Angel Tan EDITORIAL WRITER [address] [place] [address] Social History Tobacco Use Types [...] suspected to have Coronavirus/COVID-19? No / Unsure 09/18/2021 10:57 AM EDT documented as of this encounter Plan of Treatment Not on file documented as of this encounter Procedures Procedure Name Priority Date/Time Associated Diagnosis Comments MR ANGIO HEAD WO IV CONTRAST 09/16/2021 3:11 PM EDT documented in this encounter Results * MR Angio Head wo IV Contrast (09/16/2021 3:11 PM EDT) Anatomical Region Laterality Modality Head Magnetic Resonan ce 09/16/2021 3:11 PM EDT Narrative 09/16/2021 5:07 [place] [address] Name: CORONA MIN Exam Date: 09/16/2021 : 1950 Age 71 Gender: M Physician: ANGEL TAN Facility: [facility] Facility HSV: Outpatient Exam: MRA BRAIN W/O FINAL REPORT CLINICAL HISTORY: double vision dizziness no known trauma or injury no hx of stroke, ca, or surgery FINDINGS: Multiple projection images of the brain arterial vasculature were obtained without contrast. The raw data images were also reviewed. The distal internal carotid, distal vertebral and basilar arteries have an unremarkable appearance without evidence of significant stenosis or occlusion. The proximal anterior, middle and posterior cerebral arteries have an unremarkable appearance. There is no evidence of significant stenosis or major branch occlusion. No aneurysm or vascular malformation is identified. IMPRESSION: Unremarkable MR angiogram of the head. Reviewed, Interpreted and Dictated by David Cabral III, MD Transcribed by Marcie Lala Authenticated by David Cabral III, MD on 09/16/2021 04:55:02 PMEASTERN Dictated By: David Cabral III Transcribed By: Transcribed On: 09/16/2021 4:55 PM Electronically signed by: David Cabral III 09/16/2021 Thank you for referring CORONA MIN to [facility]. Legally authenticated by WILMER Stevens III 2021-09-16 16:55:02 Procedure Note Provider, Generic [place] - 09/16/2021 [place] [address] Name: CORONA MIN Exam Date: 09/16/2021 : 1950 Age 71 Gender: M Physician: ANGEL TAN Facility: [facility] Facility HSV: Outpatient Exam: MRA BRAIN W/O FINAL REPORT CLINICAL HISTORY: double vision dizziness no known trauma or injury no hx of stroke, ca, or surgery FINDINGS: Multiple projection images of the brain arterial vasculature were obtained without contrast. The raw data images were also reviewed. The distal internal carotid, distal vertebral and basilar arteries have an unremarkable appearance without evidence of significant stenosis or occlusion. The proximal anterior, middle and posterior cerebral arteries have an unremarkable appearance. There is no evidence of significant stenosis or major branch occlusion. No aneurysm or vascular malformation is identified. IMPRESSION: Unremarkable MR angiogram of the head. Reviewed, Interpreted and Dictated by David Cabral III, MD Transcribed by Mracie Lala Authenticated by David Cabral III, MD on 09/16/2021 04:55:02 PMEASTERN Dictated By: David Cabral III Transcribed By: Transcribed On: 09/16/2021 4:55 PM Electronically signed by: David Cabral III 09/16/2021 Thank you for referring CORONA MIN to [facility]. Legally authenticated by WILMER Stevens III 2021-09-16 16:55:02 Angel Tan APRN IMG MRI PROCEDURES Final Re sult documented in this encounter Visit Diagnoses Not on filedocumented in this encounter Additional Health Concerns Infection Onset Date Last Indicated Resolved Time COVID-19 Rule-Out 05/04/2023 05/04/2023 05/04/2023 9:55 PM EST COVID-19 Rule-Out 01/17/2024 01/17/2024 01/17/2024 8:20 PM EDT Assessment Noted Time A fall risk assessment has been complete d for the patient 09/01/2021 11:27 AM EDT documented as of this encounter Care Teams Signals Analyst Relationship Specialty Start Date End Date Angel Tan APRN [address] [place] [address], [place] [id number] PCP - General 09/26/20 Gely Carreon LPN [employer] [place] [address] TCM Nurse 09/02/21 10/02/21 documented as of this encounter
--- OUTSIDE RECORDS SUMMARY | 2025-02-08 09:19 | XMS_ITS | Encounter Summary ---
Author Organization Healthcare Address [address] [place] [address] Care Team Providers Care Company [employer] Name Role Phone Angel Tan APRN Primary Care Provider [phone]- [phone] Encounter Details Date Type Department Care Team ([facility] st Contact Info) Description 10/24/2024 Outside Procedure External Location [address] [place] [address] Angel Tan APRN [address] [place] [address] Social History Tobacco Use Types [...] place to sleep or slept in a long term (including now)? No 12/28/2023 PHQ-9 Answer Date [...] in the past 12 m [facility], were you homeless or living in a long term (including now)? No 04/24/2024 Safety and Environment [...] th e electric, gas, oil, or water [employer] threatened to shut off services in your home? No 04/24/2024 PHQ-2A Answer Date Recorded Patient Health Questionnaire-2 Score 2 11/03/2022 Sex and Gender Information Value Date Recorded Sex Assigned at Male 05/02/2021 6:02 PM EST Legal Sex Male 6:20 PM EDT Gender Identity Male 05/02/2021 6:02 PM EST Sexual Orientation Not on file documented as of this encounter Functional Status * Calculated C-SSRS Risk Score (Lifetime/Recent) Answer Date of Assessment Author No Risk Indicated 10/24/2024 1:30 PM EDT Rosaura Vizcaino * Question Answer Date of Assessment Author 1. Wish to be (Past 1 Month) No 025 1:30 PM EDT Rosaura Smalls 2. Non-Specific Active Suici ronal Thoughts (Past 1 Month) No 10/24/2024 1:30 PM EDT Rosaura Smalls 6. Suicidal Behavior (Lifetime) No 1:30 PM EDT Rosaura Smalls documented as of this encounter Plan of Treatment Not on file documented as of this encounter Procedures Procedure Name Priority Date/Time Associated Diagnosis Comments XR CHEST 2 VIEWS 10/24/2024 2:08 PM EDT documented in this encounter Results * XR Chest 2 Views (10/24/2024 2:08 PM EDT) Anatomical Region Laterality Modality Chest Digital Radiogra phy 10/24/2024 2:08 PM EDT Narrative 10/24/2024 5:59 [place] [address] Name: CORONA MIN Exam Date: 10/24/2024 : 1950 Age 74 years Gender: M Physician: ANGEL TAN Facility: [facility] Facility HSV: Outpatient Exam: CHEST 2 VIEWS EXAMINATION: TWO VIEW CHEST XR CLINICAL INDICATION: Male, 74 years old. pulmonary disease. TECHNIQUE: 2 View, PA and lateral, X-ray of the chest was performed. [id number]. COMPARISON: September 26, 2024. Multiple additional. FINDINGS: Unchanged T-spine neurostimulator. Postsurgical changes are noted as before. Stable cardiac mediastinal silhouette. Linear opacity in the left lung is compatible with scarring and/or atelectasis. Neither costophrenic angle is blunted. There is suspected mild obstructive airways disease. IMPRESSION: No significant interval change. Scarring or atelectasis on the left. Suspected obstructive airways disease. Electronically signed by: Chcuk Gomez MD 10/24/2024 05:56 PM EDT RP Dictated By: CHUCK GOMEZ Transcribed By: Transcribed On: 10/24/2024 5:56 PM Electronically signed by: CHUCK GOMEZ 10/24/2024 Thank you for referring CORONA MIN to [facility]. Legally authenticated by JASON OCONNOR 2024-10-24 17:56:24 Procedure Note Provider, [facility] 10/24/2024 [place] [address] Name: CORONA MIN Exam Date: 10/24/2024 : 1950 Age 74 years Gender: M Physician: ANGEL TAN Facility: [facility] Facility HSV: Outpatient Exam: CHEST 2 VIEWS EXAMINATION: TWO VIEW CHEST XR CLINICAL INDICATION: Male, 74 years old. pulmonary disease. TECHNIQUE: 2 View, PA and lateral, X-ray of the chest was performed.[id number]. COMPARISON: September 26, 2024. Multiple additional. FINDINGS: Unchanged T-spine neurostimulator. Postsurgical changes are noted asbefore. Stable cardiac mediastinal silhouette. Linear opacity in the left lungis compatible with scarring and/or atelectasis. Neither costophrenic angleis blunted. There is suspected mild obstructive airways disease. IMPRESSION: No significant interval change. Scarring or atelectasis on the left.Suspected obstructive airways disease. Electronically signed by: Chuck Gomez MD 10/24/2024 05:56 PM EDT RP Dictated By: CHUCK GOMEZ Transcribed By: Transcribed On: 10/24/2024 5:56 PM Electronically signed by: CHUCK GOMEZ 10/24/2024 Thank you for referring CORONA MIN to [facility]. Legally authenticated by JASON OCONNOR 2024-10-24 17:56:24 us Angel Tan APRN IMG XR PROCEDURES Final Res ult documented in this encounter Visit Diagnoses Not on filedocumented in this encounter Additional Health Concerns Assessment Noted Time PHQ-9 Depression Total Score: 0 09/20/19 25 2:07 PM EDT A fall risk assessment has been complete d for the patient 10/24/2024 1:29 PM EDT A Body Mass Index follow-up plan has been documented for the patient 10/24/2024 1:49 PM EDT documented as of this encounter Care Teams Company [employer] Relationship Specialty Start Date End Date Angel Tan APRN [address] [place] [address] PCP - General 09/26/20 documented as of this encounter
--- OUTSIDE RECORDS SUMMARY | 2025-02-08 09:19 | XMS_ITS | Encounter Summary ---
Author Organization Healthcare Address [address] [place] [address] Care Team Providers Care Consumer Attorney Name Role Phone Randi Mackenzie APRN Primary Care Provider [phone] [phone] Reason for Visit * Reason Comments Med Refill Encounter Details Date Type Department Care Team (Late st Contact Info) Description 12/13/2024 Refill [facility] [address] [place] [address] Randi Mackenzie APRN [address] [place] [address] Primary insomnia Social History Tobacco Use Types Packs/Day Years [...] place to sleep or slept in a long-term (including now)? No 12/28/2023 PHQ-9 Answer Date [...] any time in the past 12 m [facility], were you homeless or living in a long-term (including now)? No 04/24/2024 Safety and Environment [...] on file documented as of this encounter Miscellaneous Notes * Telephone Encounter - Adi Mckenna PharmD - 12/15/2024 9:46 AM EDT 1 medication(s) has been approved per protocol. 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
--- OUTSIDE RECORDS SUMMARY | 2025-02-08 09:19 | XMS_ITS | Encounter Summary ---
Author Organization Healthcare Address [address] [place] [address] Care Team Providers Care Torpedo Man Name Role Phone MackenzieRandi mtz Ashia HOP SORTER Primary Care Provider [phone] Encounter Details Date Type Department Care Team ([facility] st Contact Info) Description 03/17/2022 Outside Procedure External Location [address] [place] [address] Vita Montesinos P, DO [address] [place] [address] Social History Tobacco Use Types Packs/Day Years Used Date Smoking Tobacco: Some Days Cigarettes 2 60 Smokeless Tobacco: Never Alcohol [...] suspected to have Coronavirus/COVID-19? No / Unsure 03/02/2022 11:07 AM EDT documented as of this encounter Plan of Treatment Not on file documented as of this encounter Procedures Procedure Name Priority Date/Time Associated Diagnosis Comments MR HEAD WO IV CONTRAST 03/17/2022 9:07 AM EDT documented in this encounter Results * MR Head wo IV Contrast (03/17/2022 9:07 AM EDT) Anatomical Region Laterality Modality Head Magnetic Resonan ce 03/17/2022 9:07 AM EDT Narrative 03/17/2022 12:33 PM EDT [address] [place] [address] Name: CORONA MIN Exam Date: 03/17/2022 : 1950 Age 71 Gender: M Physician: VITA MONTESINOS Facility: [facility] Facility HSV: Outpatient Exam: MRI BRAIN W/O FINAL REPORT CLINICAL HISTORY: C/o memory loss and generalized weakness x6-12 months; R/o TIA. Pt has no other complaints. No hx of CVA. FINDINGS: Multiplanar MR imaging of the brain was performed without contrast. There is mild age-appropriate atrophy. There are scattered foci of increased T2 signal in the cerebral white matter that have a nonspecific appearance but likely represent mild chronic ischemic/gliotic changes. There is no evidence of intracranial hemorrhage or mass. No abnormal ventricular dilatation is identified. No abnormal extra-axial fluid collection is seen. No abnormality is seen on the diffusion weighted images. The posterior fossa and brainstem are unremarkable. Normal major vessel vascular flow voids are seen. IMPRESSION: Age-appropriate atrophy and mild chronic ischemic/gliotic changes. No acute intracranial abnormality. Reviewed, Interpreted and Dictated by David Cabral III, MD Transcribed by Marcie Lala Authenticated and EASTERN Dictated By: David Cabral III Transcribed By: Transcribed On: 03/17/2022 12:20 PM Electronically signed by: David Cabral III 03/17/2022 Thank you for referring CORONA MIN to [facility]. Legally authenticated by WILMER Stevens III 2022-03-17 12:20:31 Procedure Note Provider, Generic [place] - 03/17/2022 [facility] [address] [place] [address] Name: CORONA MIN Exam Date: 03/17/2022 : 1950 Age 71 Gender: M Physician: VITA MONTESINOS Facility: [facility] Facility HSV: Outpatient Exam: MRI BRAIN W/O FINAL REPORT CLINICAL HISTORY: C/o memory loss and generalized weakness x6-12 months; R/o TIA. Pt has no other complaints. No hx of CVA. FINDINGS: Multiplanar MR imaging of the brain was performed without contrast. There is mild age-appropriate atrophy. There are scattered foci of increased T2 signal in the cerebral white matter that have a nonspecific appearance but likely represent mild chronic ischemic/gliotic changes. There is no evidence of intracranial hemorrhage or mass. No abnormal ventricular dilatation is identified. No abnormal extra-axial fluid collection is seen. No abnormality is seen on the diffusion weighted images. The posterior fossa and brainstem are unremarkable. Normal major vessel vascular flow voids are seen. IMPRESSION: Age-appropriate atrophy and mild chronic ischemic/gliotic changes. No acute intracranial abnormality. Reviewed, Interpreted and Dictated by David Cabral III, MD Transcribed by Marcie Lala Authenticated and EASTERN Dictated By: David Cabral III Transcribed By: Transcribed On: 03/17/2022 12:20 PM Electronically signed by: David Cabral III 03/17/2022 Thank you for referring CORONA MIN to [facility]. Legally authenticated by WILMER Stevens III 2022-03-17 12:20:31 us Vita Montesinos DO IMG MRI PROCEDURES Final Resu lt documented in this encounter Visit Diagnoses Not on filedocumented in this encounter Additional Health Concerns Infection Onset Date Last Indicated Resolved Time COVID-19 Rule-Out 05/04/2023 05/04/2023 05/04/2023 9:55 PM EST COVID-19 Rule-Out 01/17/2024 01/17/2024 01/17/2024 8:20 PM EDT Assessment Noted Time A fall risk assessment has been complete d for the patient 03/02/2022 11:13 AM EDT documented as of this encounter Care Teams Torpedo Man Relationship Specialty Start Date End Date Randi Mackenzie APRN [address] [place] [address] PCP - General 09/26/20 documented as of this encounter
--- OUTSIDE RECORDS SUMMARY | 2025-02-08 09:19 | XMS_ITS | Encounter Summary ---
Author Organization Healthcare Address [address] [place] [address] Care Team Providers Care [facility] Name Role Phone GurdeepRandi Ashia VILLAFANA Primary Care Provider [phone] Encounter Details Date Type Department Care Team (Latest Contact Info) Description 01/23/2025 Travel Social History Tobacco Use Types Packs/Day Years [...] any time in the past 12 m [facility], were you homeless or living in a prison (including now)? No 01/23/[address] [facility] Utilities Answer Date Recorded In the past 12 months has e electric, gas, oil, or water company [...] as of this encounter Functional Status * Over the past 2 weeks, how often have you been bothered by any of the following problems? Question Answer Date of Assessment Author Little interest or pleasure in doing things Not at all 01/23/2025 1:28 PM EDT Rosaura Smalls Feeling down, depressed, or hopeless Not at all 01/23/2025 1:28 PM ALBERTAT Rosaura Smalls Patient Health Questionnaire -2 Score 0 01/23/2025 1:28 PM ALBERTAT Rosaura Smalls * Question Answer Date of Assessment Author Trouble falling or staying a sleep, or sleeping too much Not at all 01/23/2025 1:28 PM ALBERTAT Rosaura Smalls Feeling tired or having cinthia le energy Not at all 01/23/2025 1:28 PM Rosaura Gann Poor appetite or overeating Not at all 01/23/2025 1: 28 PM ALBERTAT Rosaura Smalls Feeling bad about yourself - or that [...] usual. Not at all 01/23/2025 1:28 PM ALBERTAT Rosaura Vizcaino Thoughts that you would be b shelli off or hurting yourself in some way Not at all 01/23/2025 1:28 PM Rosaura Gann Patient Health Questionnaire -9 Score 0 01/23/2025 1:28 PM Rosaura Gann * Calculated C-SSRS Risk Score (Lifetime/Recent) Answer Date of Assessment Author No Risk Indicated 01/23/2025 1:29 PM ALBERTAT Rosaura Vizcaino * How difficult have these problems made [...] (Past 1 Month) No 01/23/2025 1:29 PM EDT Rosaura Smalls 6. Suicidal Behavior (Lifetime) No 1:29 PM EDT Rosaura Smalls documented as of [...] documented as of this encounter Care Teams [facility] Relationship Specialty Start Date End Date Randi Mackenzie APRN [address] [place] [address] PCP - General 09/26/20 documented as of this encounter
--- OUTSIDE RECORDS SUMMARY | 2025-02-08 09:19 | XMS_ITS | Encounter Summary ---
Author Organization [facility] Address [address] [place] [address] Care Team Providers Care Transliterator Name Role Phone Randi Mackenzie APRN Primary Care Provider [phone] Reason for Visit * Reason Onset Date Comments HCN Clinical Concern/Question 10/25/2024 Encounter Details Date Type Department Care Team (Late st Contact Info) Description 10/25/2024 Results Follow-Up [facility] [address] [place] [address] Randi Mackenzie APRN [address] [place] [address] HCN Clinical Concern/Question Social History Tobacco Use Types Packs/Day Years [...] any time in the past 12 m [facility], were you homeless or living in [...] encounter Miscellaneous Notes * Telephone Encounter - Rigo Erickson - 10/25/2024 9:25 AM EDT Clinical Concern/Question Reason for Call: missed call/ results Best contact number: [phone] (mobile) Optimal time of day to reach caller: ANYTIME Additional comments/information from caller: None Note: Please do not reply to this message. Follow-up communication and further actions as a result of this message need to be communicated with the patient directly, if the patient is not active onMyChart. If the patient is active on MyChart, they will receive notification of the communication/outcome via NaHere. documented in this encounter Plan of Treatment [...] documented as of this encounter Care Teams Transliterator Relationship Specialty Start Date End Date Randi Mackenzie APRN [address] [address] PCP - General 09/26/20 documented as of this encounter
--- OUTSIDE RECORDS SUMMARY | 2025-02-08 09:19 | XMS_ITS | Encounter Summary ---
Author Organization [facility] ([place], [place], [place], [place]) Address [address] [place] [address] Care Team Providers Care Law Reporter Name Role Phone Randi Mackenzie REVERSER Primary Care Provider [phone] Reason for Visit * Reason Comments Medication Refill Encounter Details Date Type Department Care Team (Late st Contact Info) Description 06/18/2023 Refill [facility] [address] [phone] Claus Mcclain PA-C [address] [place] [address], [facility] [address] [place] [address] Social History Tobacco Use Types Packs/Day Years [...] Date Johnny rded Speak language other than Persian at home Not on file 05/24/2023 Want [...] on filedocumented in this encounter Care Teams Law Reporter Relationship Specialty Start Date End Date Randi Mackenzie, REVERSER [address] [place] [address] PCP - General Nurse Practitioner 10/29/22 documented as of this encounter
--- OUTSIDE RECORDS SUMMARY | 2025-02-08 09:19 | XMS_ITS | Clinical Summary ---
Author Organization [facility] Address [address] [place] [address] Care Team Providers Care Filtrose Crusher Name Role Phone Randi Mackenzie LEDY Primary Care Provider Allergies No known active allergies Medications multivitamin with minerals (MULTIVITAMIN ADULTS PO) Take 1 tablet by mouth Daily. Active omeprazole (priLOSEC) 40 MG capsule Take 1 capsule by mouth Daily. 4 Active PARoxetine (PAXIL) 20 MG tablet Take 1 tablet by mouth Every Morning. 4 Active atorvastatin (LIPITOR) 20 MG tablet Take 1 tablet by mouth Daily. Active Morphine (MSIR) 15 MG tablet Take 1 tablet by mouth Every 4 (Four) Hours As Needed for Severe Pain. Active albuterol (PROVENTIL) 2.5 MG/0.5ML nebulizer solution Take 2.5 mg by nebulization 4 (Four) Times a Day. Active aspirin 81 MG EC tablet Take 1 tablet by mouth Daily. Active gabapentin (NEURONTIN) 600 MG tablet Take 1 tablet by mouth 2 (Two) Times a Day. Active magnesium oxide (MAG-OX) 400 MG tablet Take 1 tablet by mouth Daily. Active guaiFENesin (Mucus Relief) 600 MG 12 hr tablet Take 2 tablets by mouth 2 (Two) Times a Day. Active albuterol sulfate HFA 108 (90 Base) MCG/ACT inhaler Inhale 2 puffs Every 4 (Four) Hours As Needed for Wheezing. Active Cholecalcifero l 25 MCG (1000 UT) tablet Take 1 tablet by mouth Daily. Active tiotropium (SPIRIVA) 18 MCG per inhalation capsule Place 1 capsule into inhaler and inhale Daily. Active CIMETIDINE 200 MG tablet Take 1 tablet by mouth Every Night. Active traZODone (DESYREL) 100 MG tablet Take 2 tablets by mouth Every Night. Active donepezil (ARICEPT) 10 MG tablet Take 1 tablet by mouth Every Night. Active Morphine (MSIR) 15 MG immediate release tablet Take 1 tablet by mouth 4 (Four) Times a Day for 30 days. 120 tablet 01/22/2025 1:06 PM EDT 5 02/22/20 25 Active Morphine (MSIR) 15 MG immediate release tablet Take 1 tablet by mouth 4 (Four) Times a Day 120 tablet 12/19/2024 12:30 PM EDT 5 01/19/20 25 Active Problems Problem Noted Date Diagnosed Date S/P MVR (mitral valve replacement) 08/01/2024 Family History Medical History Relation Name Comments No Known Problems Father Heart disease Mother Relation Name Status Comments Father Mother Social History Tobacco Use Types Packs/Day Years Used Date Smoking Tobacco: Every Day Cigarettes 1 66.7 Started: 1958 Smokeless Tobacco: Never Tobacco Cessation:Ready to Q uit: Not Asked; Counseling Given: Not Answered Alcohol Use Standard Drinks/Week Comments Yes 0 (1 standard drink = 0.6 oz pur e alcohol) 3-4 drinks per week Sex and Gender Information Value Date Recorded Sex Assigned at Not on file Legal Sex Male 1:19 PM EDT Gender Identity Not on file Sexual Orientation Not on file Last Filed Vital Signs Vital Sign Reading Time Taken Comments Blood Pressure 95/68 08/01/2024 2:07 PM EDT Pulse 85 08/01/2024 2:07 PM EDT Temperature - - Respiratory Rate - - Oxygen Saturation 91% 08/01/2024 2:07 PM EDT Inhaled Oxygen Concentration - - Weight 70.5 kg (155 lb 6.4 oz) 08/01/2024 2:07 P M EDT Height 172.7 cm (5' 8 ) 08/01/2024 2:07 PM EDT Body Mass Index 23.63 08/01/2024 2:07 PM EDT Plan of Treatment Upcoming Encounters Date Type Department Care Team (Late st Contact Info) Description 07/31/2025 10:30 AM EDT Office Visit [facility] [address] [place] [address] Luz Maria Fleming APRN [address] [place] [address] Health Maintenance Due Date Last Done Comments TDAP/TD VACCINES (1 - Tdap) 1969 COLOGUARD 1995 COLON CANCER SCREENING 5 YEA R SIGMOIDOSCOPY 1995 CT COLONOGRAPHY 1995 FECAL OCCULT BLOOD TEST 1995 FIT Testing (1 year) 1995 LUNG CANCER SCREENING 2000 ZOSTER VACCINE (2 of 2) 05/11/2018 03/16/2018 ANNUAL WELLNESS VISIT 04/22/2022 HEPATITIS C SCREENING 04/22/2022 INFLUENZA VACCINE 12/14/2024 04/24/2024, , 03/02/2022, Additional history exists COVID-19 Vaccine (2023-2 5 season) 2025 04/24/2024, 03/25/2023, 07/09/2022, Additional history exists COLONOSCOPY 09/09/2027 09/08/2017 COLORECTAL CANCER SCREENING 09/09/2027 Pneumococcal Vaccine 50+ Completed 023, 03/19/2021, 03/16/2018, Additional history exists AAA SCREEN ONCE Completed 08/05/2023, 05/29/2021 Insurance MEDICARE A & B Care Teams Filtrose Crusher Relationship Specialty Start Date End Date Randi Mackenzie APRN [address] [place] [address] PCP - General Family Medicine 06/07/16
--- OUTSIDE RECORDS SUMMARY | 2025-02-08 09:19 | XMS_ITS | Encounter Summary ---
Author Organization Healthcare Address [address] [place] [address] Care Team Providers Care Bird Trapper Name Role Phone Randi Mackenzie APRN Primary Care Provider [phone] Reason for Visit * Reason Comments Med Refill Encounter Details Date Type Department Care Team (Late st Contact Info) Description 12/24/2024 Refill [facility] [address] [place] [address] Randi Mackenzie APRN [address] [place] [address] Paroxysmal atrial fibrillation (CMS/HCC) Social History Tobacco Use Types Packs/Day Years [...] place to sleep or slept in a residential (including now)? No 12/28/2023 PHQ-9 Answer Date [...] any time in the past 12 m [facility], were you homeless or living in a residential (including now)? No 04/24/2024 Safety and Environment [...] encounter Miscellaneous Notes * Telephone Encounter - Benja Chaudhry PharmD - 12/27/2024 9:35 AM EDT 1 medication(s) has been approved per protocol. documented in this encounter Plan of Treatment Not on file documented as of this encounter Visit Diagnoses Diagnosis Paroxysmal atrial fibrillation (CMS/HCC) Atrial fibrillation documented in this encounter Additional Health Concerns Assessment Noted Time PHQ-9 Depression Total Score: 0 09/20/19 25 2:07 PM EDT A fall risk assessment has been complete d for the patient 10/24/2024 1:29 PM EDT A Body Mass Index follow-up plan has been documented for the patient 10/24/2024 1:49 PM EDT documented as of this encounter Care Teams Bird Trapper Relationship Specialty Start Date End Date Randi Mackenzie APRN [facility] [place] [address] [address] PCP - General 09/26/20 documented as of this encounter
--- OUTSIDE RECORDS SUMMARY | 2025-02-08 09:19 | XMS_ITS | Encounter Summary ---
Author Organization Healthcare Address [address] [place] [address] Care Team Providers Care Focused Factory Manager Name Role Phone Angel Tan APRN Primary Care Provider [phone] Encounter Details Date Type Department Care Team ([facility] st Contact Info) Description 05/26/2023 Outside Procedure External Location [address] [place] [address] Angel Tan APRN [address] [place] [address] Social History Tobacco Use Types [...] Name Priority Date/Time Associated Diagnosis Comments XR RIBS 2 VIEWS LEFT 05/26/2023 11:45 AM EST documented in this encounter Results * XR Ribs 2 Views Left (05/26/2023 11:45 AM EST) Anatomical Region Laterality Modality Rib Left Digital Radiogra phy 05/26/2023 11:4 5 AM EST Narrative 05/26/2023 1:40 [place] [address] Name: CORONA MIN Exam Date: 05/26/2023 : 1950 Age 72 Gender: M Physician: ANGEL TAN Facility: [facility] Facility HSV: Outpatient Exam: RIBS UNILAT 2VWS LT Left rib series History: Acute left rib pain Findings: 2 views were obtained. No acute displaced rib fractures identified. There is no pneumothorax. Impression: No acute displaced rib fracture identified. Images reviewed, interpreted and dictated by Dr. Rivers. Transcribed by Kris Ward PA-C Dictated By: DAVID RIVERS Transcribed By: David Rivers Transcribed On: 05/26/2023 1:23 PM Electronically signed by: DAVID RIVERS 05/26/2023 Thank you for referring CORONA MIN to [facility]. Legally authenticated by POPE DAVID Robin 2023-05-26 13:23:34 Procedure Note Provider, Generic [place] - 05/26/2023 [place] [address] Name: CORONA MIN Exam Date: 05/26/2023 : 1950 Age 72 Gender: M Physician: ANGEL TAN Facility: [facility] Facility HSV: Outpatient Exam: RIBS UNILAT 2VWS LT Left rib series History: Acute left rib pain Findings: 2 views were obtained. No acute displaced rib fractures identified. Thereis no pneumothorax. Impression: No acute displaced rib fracture identified. Images reviewed, interpreted and dictated by Dr. Rivers. Transcribed by Kris Ward PA-C Dictated By: DAVID RIVERS Transcribed By: David Rivers Transcribed On: 05/26/2023 1:23 PM Electronically signed by: DAVID RIVERS 05/26/2023 Thank you for referring CORONA MIN to [facility]. Legally authenticated by POPE DAVID Robin 2023-05-26 13:23:34 us Angel Tan APRN IMG XR PROCEDURES [...] documented as of this encounter Care Teams Focused Factory Manager Relationship Specialty Start Date End Date Angel Tan APRN [address] [place] [address] PCP - General 09/26/20 documented as of this encounter
--- OUTSIDE RECORDS SUMMARY | 2025-02-08 09:19 | XMS_ITS | Encounter Summary ---
Author Organization Healthcare Address [address] [place] [address] Care Team Providers Care Railroad Dining Car Steward/Stewardess Name Role Phone Randi Mackenzie APRN Primary Care Provider [phone] Encounter Details Date Type Department Care Team (Late st Contact Info) Description 08/05/2023 Outside Procedure External Location [address] [place] [address] Ana Cristina Oakes, LEDY, DNP [address] [place] [address] Social History Tobacco Use Types [...] afraid of your partner or ex-partner? No 07/11/2023 Within the last year, have y ou been humiliated or emotionally abused in other ways by your partner or ex-partner? No Within the last year, have y ou been kicked, hit, slapped, or otherwise physically hurt by your partner or ex-partner? No 07/11/2023 Within the last year, have y ou been raped or forced to have any kind of sexual activity by your partner or ex-partner? No 07/11/2023 PHQ-2 Answer Date Recorded Patient Health Questionnaire-2 Score 0 07/27/2023 Hunger Vital Sign Answer Date Recorded Within the past 12 months, y ou worried that your food would run out before you got the money to buy more. Never true 07/11/19 24 Within the past 12 months, t he food you bought just didn't last and you didn't have money to get more. Never true 07/11/2023 PRAPARE - Transportation Answer Date Re corded In the past 12 months, has l ack of transportation kept you from medical appointments or from getting medications? No 06/17 In the past 12 months, has l ack of transportation kept you from meetings, work, or from getting things needed for daily living? No 07/11/2023 Housing Stability Vital Sign Answer Andrew e Recorded In the last 12 months, was t here a time when you were not able to pay the mortgage or rent on time? No 07/11/2023 In the last 12 months, how many places have you lived? 1 07/11/2023 In the last 12 months, was t here a time when you did not have a steady place to sleep or slept in a jail (including now)? No 07/11/2023 Utilities Answer Date Recorded In the past 12 months has th e electric, gas, oil, or water company threatened to shut off services in your home? No 07/11/2023 PHQ-2A Answer Date Recorded Patient Health Questionnaire-2 [...] Comments CT ABDOMEN PELVIS W IV CONTRAST 08/05/2023 1:21 PM EDT documented in this encounter Results * CT Abdomen Pelvis w IV Contrast (08/05/2023 1:21 PM EDT) Anatomical Region Laterality Modality Abdomen, Pelvis Computed Tomogra phy 08/05/2023 1:21 PM EDT Narrative 08/05/2023 3:55 [place] [address] Name: CORONA MIN Exam Date: 08/05/2023 : 1950 Age 73 years Gender: M Physician: Ana Cristina Oakes Facility: [facility] Facility HSV: Outpatient Exam: CT ABD PEL W/ (IV ORAL) CT ABDOMEN AND PELVIS WITH CONTRAST TECHNIQUE: Oral and IV contrast enhanced exam. HISTORY: Generalized abdominal pain COMPARISON: May 29, 2021. FINDINGS: ABDOMEN: Basilar atelectasis noted. The heart is enlarged. Calcified tortuous aorta without abdominal aortic aneurysm. The gallbladder is absent. No focal liver lesion identified. The spleen is normal size. The common duct is dilated measuring up to 1.3 cm, ERCP may be of additional benefit, correlate clinically. No pancreatic inflammatory changes were appreciated. Adrenal glands are normal. There is no hydronephrosis. No abnormally dilated loops of bowel. There is a moderate amount of retained stool, correlate for constipation. Generator overlies the left flank with intraspinal leads. PELVIS: The appendix is not definitively identified, no secondary signs of appendicitis. The bladder is decompressed. No acute osseous changes. IMPRESSION: The common duct is dilated measuring up to 1.3 cm, ERCP may be of additional benefit, correlate clinically. Moderate amount of retained stool, correlate for constipation. This study was performed using automated techniques to achieve radiation exposure as low as reasonably achievable Dictated By: DAVID RIVERS Transcribed By: David Rivers Transcribed On: 08/05/2023 3:25 PM Electronically signed by: DAVID RIVERS 08/05/2023 Thank you for referring CORONA MIN to [facility]. Legally authenticated by POPE DAVID Robin 2023-08-05 15:25:32 Procedure Note Provider, Dilia [place] - 08/05/[address] [address] Name: CORONA MIN Exam Date: 08/05/2023 : 1950 Age 73 years Gender: M Physician: Ana Cristina Oakes Facility: [facility] Facility HSV: Outpatient Exam: CT ABD PEL W/ (IV ORAL) CT ABDOMEN AND PELVIS WITH CONTRAST TECHNIQUE: Oral and IV contrast enhanced exam. HISTORY: Generalized abdominal pain COMPARISON: May 29, 2021. FINDINGS: ABDOMEN: Basilar atelectasis noted. The heart is enlarged. Calcifiedtortuous aorta without abdominal aortic aneurysm. The gallbladder is absent. Nofocal liver lesion identified. The spleen is normal size. The common duct isdilated measuring up to 1.3 cm, ERCP may be of additional benefit, correlate clinically. No pancreatic inflammatory changes were appreciated. Adrenal glands are normal. There is no hydronephrosis. No abnormally dilated loopsof bowel. There is a moderate amount of retained stool, correlate for constipation. Generator overlies the left flank with intraspinal leads. PELVIS: The appendix is not definitively identified, no secondary signsof appendicitis. The bladder is decompressed. No acute osseous changes. IMPRESSION: The common duct is dilated measuring up to 1.3 cm, ERCP may be ofadditional benefit, correlate clinically. Moderate amount of retained stool, correlate for constipation. This study was performed using automated techniques to achieve radiation exposure as low as reasonably achievable Dictated By: DAVID RIVERS Transcribed By: David Rivers Transcribed On: 08/05/2023 3:25 PM Electronically signed by: DAVID RIVERS 08/05/2023 Thank you for referring CORONA MIN to [facility]. Legally authenticated by POPE DAVID Robin 2023-08-05 15:25:32 us Ana Cristina Oakes SCHOOL PHYSICAL THERAPIST, DNP IMG CT PROCEDURES Fin al Result documented in this encounter Visit Diagnoses Not on filedocumented in this encounter Additional Health Concerns Infection Onset Date Last Indicated Resolved Time COVID-19 Rule-Out 01/17/2024 01/17/2024 01/17/2024 8:20 PM EDT Assessment Noted Time A fall risk assessment has been complete d for the patient 07/29/2023 3:45 PM EDT A Body Mass Index follow-up plan has been documented for the patient 07/29/2023 4:35 PM EDT documented as of this encounter Care Teams Railroad Dining Car Steward/Stewardess Relationship Specialty Start Date End Date Randi Mackenzie APRN [address] [place] [address] PCP - General 09/26/20 documented as of this encounter
--- OUTSIDE RECORDS SUMMARY | 2025-02-08 09:19 | XMS_ITS | Encounter Summary ---
Author Organization Healthcare Address [address] [place] [address] Care Team Providers Care Lining Brusher Name Role Phone Randi Mackenzie APRN Primary Care Provider [phone] Gely Carreon LPN Unavailable Unavailable Encounter Details Date Type Department Care Team (Late st Contact Info) Description 09/12/2021 Outside Procedure External Location [address] [place] [address] Provider, Dilia Sepulvedawn Social History Tobacco Use [...] Name Priority Date/Time Associated Diagnosis Comments CT HEAD WO IV CONTRAST 09/12/2021 5:58 PM EDT documented in this encounter Results * CT Head wo IV Contrast (09/12/2021 5:58 PM EDT) Anatomical Region Laterality Modality Head Computed Tomogra phy 09/12/2021 5:58 PM EDT Narrative 09/12/2021 6:23 PM EDT [place] [id number] Name: CORONA MIN Exam Date: 09/12/2021 : 1950 Age 71 Gender: M Physician: DONTRELL PALMER Facility: [facility] Facility HSV: Outpatient Exam: CT BRAIN W/O FINAL REPORT TECHNIQUE: Multiple axial CT images were performed from the foramen magnum to the vertex. This study was performed with techniques to keep radiation doses as low as reasonably achievable (ALARA). Individualized dose reduction techniques using automated exposure control or adjustment of mA and/or kV according to the patient's size were employed. CLINICAL HISTORY: Visual Disturbances r/o stroke FINDINGS: No acute intracranial hemorrhage or large acute cortical infarct. The brain volume is normal for patient's age. Ventricles are normal in size and configuration. No midline shift. The basal cisterns are patent. No skull fracture. The visualized paranasal sinuses and mastoid air cells are clear. IMPRESSION: No acute intracranial hemorrhage or large acute cortical infarct. Authenticated by Tesfaye Ortega MD on 09/12/2021 06:13:04 PMEASTERN Dictated By: Tesfaye Ortega Transcribed By: Transcribed On: 09/12/2021 6:13 PM Electronically signed by: Tesfaye Ortega 09/12/2021 Thank you for referring CORONA MIN to [facility]. Legally authenticated by VIRGINIA Hodge 2021-09-12 18:13:04 Procedure Note Provider, Generic [place] - 09/12/[address] [address] Name: CORONA MIN Exam Date: 09/12/2021 : 1950 Age 71 Gender: M Physician: DONTRELL PALMER Facility: [facility] Facility HSV: Outpatient Exam: CT BRAIN W/O FINAL REPORT TECHNIQUE: Multiple axial CT images were performed from the foramen magnum to the vertex. This study was performed with techniques to keep radiation doses as low as reasonably achievable (ALARA). Individualized dose reduction techniques using automated exposure control or adjustment of mA and/or kV according to the patient's size were employed. CLINICAL HISTORY: Visual Disturbances r/o stroke FINDINGS: No acute intracranial hemorrhage or large acute cortical infarct. The brain volume is normal for patient's age. Ventricles are normal in size and configuration. No midline shift. The basal cisterns are patent. No skull fracture. The visualized paranasal sinuses and mastoid air cells are clear. IMPRESSION: No acute intracranial hemorrhage or large acute cortical infarct. Authenticated by Tesfaye Ortega MD on 09/12/2021 06:13:04 PMEASTERN Dictated By: Tesfaye Ortega Transcribed By: Transcribed On: 09/12/2021 6:13 PM Electronically signed by: Tesfaye Ortega 09/12/2021 Thank you for referring CORONA MIN to [facility]. Legally authenticated by VIRGINIA Hodge 2021-09-12 18:13:04 Generic [place] Provider IMG CT PROCEDURES Fi nal Result [...] documented as of this encounter Care Teams Lining Brusher Relationship Specialty Start Date End Date Randi Mackenzie APRN [address] [place] [address] PCP - General 09/26/20 Gely Carreon, TODD [employer] [place] [address] TCM Nurse 09/02/21 10/02/21 documented as of this encounter
--- OUTSIDE RECORDS SUMMARY | 2025-02-08 09:19 | XMS_ITS | Encounter Summary ---
Author Organization [employer] ([place], [place], [place], [place]) Address [address] [place] [address] Care Team Providers Care Coiler Name Role Phone Randi Mackenzie WHIP OPERATOR Primary Care Provider [phone] Reason for Visit * Reason Comments Medication Refill Encounter Details Date Type Department Care Team (Late st Contact Info) Description 09/30/2022 Refill [facility]iology [address] [phone] Claus Mcclain PA-C [address] [facility], [facility] [address] [place] [address] Social History Tobacco Use Types Packs/Day Years Used Date Smoking Tobacco: Never Assessed Sex and Gender Information Value Date Recorded Sex Assigned at Not on file Legal Sex Male 5:56 PM CDT Gender Identity Not on file Sexual Orientation Not on file documented as of this encounter Plan of Treatment Not on file documented as of this encounter Visit Diagnoses Not on filedocumented in this encounter Care Teams Coiler Relationship Specialty Start Date End Date Randi Mackenzie NP [address] [facility] [place] [address] PCP - General Nurse Practitioner 10/29/22 documented as of this encounter
--- OUTSIDE RECORDS SUMMARY | 2025-02-08 09:19 | XMS_ITS | Encounter Summary ---
Author Organization Healthcare Address [address] [place] [address] Care Team Providers Care Farmer And Grazier Name Role Phone Angel Tan APRN Primary Care Provider Gely Carreon LPN Unavailable Unavailable Encounter Details Date Type Department Care Team (Late st Contact Info) Description 05/07/2021 Outside Procedure External Location [address] [place] [address] Angel Tan APRN [address] [place] [address] Social History Tobacco Use Types [...] have Coronavirus / COVID-19? Unable to assess 05/07/2021 8:41 AM EST documented as of this encounter Plan of Treatment Not on file documented as of this encounter Procedures Procedure Name Priority Date/Time Associated Diagnosis Comments XR CHEST 2 VIEWS 05/07/2021 9:58 AM EST documented in this encounter Results * XR Chest 2 Views (05/07/2021 9:58 AM EST) Anatomical Region Laterality Modality Chest Radiographic Deanna ging 05/07/2021 9:58 AM EST Narrative 05/07/2021 10:17 [place] [address] Name: CORONA MIN Exam Date: 05/07/2021 : 1950 Age 70 Gender: M Physician: ANGEL TAN Facility: [facility] Facility HSV: Outpatient Exam: CHEST 2 VIEWS CHEST, 2 views HISTORY: Shortness of breath, cough COMPARISON: 01/25/2018 FINDINGS: The lungs are hyperlucent hyperexpanded with flattening of the hemidiaphragms, consistent with chronic obstructive pulmonary disease. Lungs are otherwise clear. There is no evidence of effusion or other pleural disease. The mediastinum has a normal appearance. The cardiac silhouette is unremarkable. IMPRESSION: No acute findings. Underlying emphysema. Dictated By: GLYNN PEREZ Transcribed By: Tesfaye Perez Transcribed On: 05/07/2021 10:06 AM Electronically signed by: GLYNN PEREZ 05/07/2021 Thank you for referring CORONA MIN to [facility]. Legally authenticated by CHRIS ZAMBRANO 2021-05-07 10:06:52 Procedure Note Provider, [facility] - 05/07/2021 [place] [address] Name: CORONA MIN Exam Date: 05/07/2021 : 1950 Age 70 Gender: M Physician: ANGEL TAN Facility: [facility] Facility HSV: Outpatient Exam: CHEST 2 VIEWS CHEST, 2 views HISTORY: Shortness of breath, cough COMPARISON: 01/25/2018 FINDINGS: The lungs are hyperlucent hyperexpanded with flattening of the hemidiaphragms, consistent with chronic obstructive pulmonary disease.Lungs are otherwise clear. There is no evidence of effusion or other pleural disease. The mediastinumhas a normal appearance. The cardiac silhouette is unremarkable. IMPRESSION: No acute findings. Underlying emphysema. Dictated By: GLYNN PEREZ Transcribed By: Tesfaye Perez Transcribed On: 05/07/2021 10:06 AM Electronically signed by: GLYNN PEREZ 05/07/2021 Thank you for referring CORONA MIN to [facility]. Legally authenticated by CHRIS ZAMBRANO 2021-05-07 10:06:52 us Angel Tan APRN IMG XR PROCEDURES Final Res ult documented in this encounter Visit Diagnoses Not on filedocumented in this encounter Additional Health Concerns Infection Onset Date Last Indicated Resolved Time COVID-19 Rule-Out 05/04/2023 05/04/2023 05/04/2023 9:55 PM EST COVID-19 Rule-Out 01/17/2024 01/17/2024 01/17/2024 8:20 PM EDT Assessment Noted Time A fall risk assessment has been complete d for the patient 05/07/2021 9:10 AM EST documented as of this encounter Care Teams Farmer And Grazier Relationship Specialty Start Date End Date Angel Tan APRN [address] [place] [phone] PCP - General 09/26/20 Gely Carreon LPN [employer] [place] [address] TCM Nurse 09/02/21 10/02/21 documented as of this encounter
--- OUTSIDE RECORDS SUMMARY | 2025-02-08 09:19 | XMS_ITS | Referral Summary ---
Author Organization [employer] ([place], [place], [place], [place]) Address [address] [place] [address] Care Team Providers Care Parliamentary Counsel Name Role Phone Randi Mackenzie HOUSE ADMIN Primary Care Provider [phone] Allergies No known active allergies Medications atorvastatin [...] Date Johnny rded Speak language other than Icelandic at home Not on file 05/24/2023 Want [...] 05/04/2023 2:02 PM EST Plan of Treatment Not on file Insurance [place] [address] Care Teams Parliamentary Counsel Relationship Specialty Start Date End Date Randi Mackenzie, HOUSE ADMIN [address] [facility] [place] [address] PCP - General Nurse Practitioner 10/29/22
--- OUTSIDE RECORDS SUMMARY | 2025-02-08 09:19 | XMS_ITS | Encounter Summary ---
Author Organization Healthcare Address [address] [place] [address] Care Team Providers Care Light Truck Driver Name Role Phone Angel Tan APRN Primary Care Provider Gely Carreon LPN Unavailable Unavailable Encounter Details Date Type Department Care Team (Late st Contact Info) Description 09/18/2021 Outside Procedure External Location [address] [place] [address] Angel Tan ENGINEERING CLERK [address] [place] [address] Social History Tobacco Use Types [...] Associated Diagnosis Comments XR CHEST 2 VIEWS 09/18/2021 12:1 0 PM EDT documented in this encounter Results * XR Chest 2 Views (09/18/2021 12:10 PM EDT) Anatomical Region Laterality Modality Chest Radiographic Deanna ging 09/18/2021 12:1 0 PM EDT Narrative 09/18/2021 1:43 [place] [address] Name: CORONA MIN Exam Date: 09/18/2021 : 1950 Age 71 Gender: M Physician: ANGEL TAN Facility: [facility] Facility HSV: Outpatient Exam: CHEST 2 VIEWS CHEST, 2 views HISTORY: Cough COMPARISON: May 07, 2021. FINDINGS: Sternal wires and left atrial appendage clip are noted. Left basilar opacity may represent infiltrate versus atelectasis. No evidence of pneumothorax. The mediastinum has a normal appearance. The cardiac silhouette is unremarkable. No acute osseous changes. IMPRESSION: Left basilar opacity may represent infiltrate versus atelectasis. Continued follow up recommended. Dictated By: David Emerson Transcribed By: David Emerson Transcribed On: 09/18/2021 1:32 PM Electronically signed by: David Emerson 09/18/2021 Thank you for referring MECHELLE CORONA to [facility]. Legally authenticated by POPE DAVID Robin 2021-09-18 13:32:12 Procedure Note Provider, Generic [place] - 09/18/2021 [place] [address] Name: MECHELLE CORONA Exam Date: 09/18/2021 : 1950 Age 71 Gender: M Physician: ANGEL TAN Facility: [facility] Facility HSV: Outpatient Exam: CHEST 2 VIEWS CHEST, 2 views HISTORY: Cough COMPARISON: May 07, 2021. FINDINGS: Sternal wires and left atrial appendage clip are noted. Leftbasilar opacity may represent infiltrate versus atelectasis. No evidence of pneumothorax. The mediastinum has a normal appearance. The cardiac silhouette is unremarkable. No acute osseous changes. IMPRESSION: Left basilar opacity may represent infiltrate versusatelectasis. Continued follow up recommended. Dictated By: David Emerson Transcribed By: David Emerson Transcribed On: 09/18/2021 1:32 PM Electronically signed by: David Emerson 09/18/2021 Thank you for referring CORONA MIN to [facility]. Legally authenticated by POPE DAVID Robin 2021-09-18 13:32:12 Angel Tan APRN IMG XR PROCEDURES Final [...] documented as of this encounter Care Teams Light Truck Driver Relationship Specialty Start Date End Date Angel Tan APRN [address] [place] [address] PCP - General 09/26/20 Gely Carreon LPN VALUE[employer]ED [place] [address] TCM Nurse 09/02/21 10/02/21 documented as of this encounter
--- OUTSIDE RECORDS SUMMARY | 2025-02-08 09:19 | XMS_ITS | Encounter Summary ---
Author Organization Healthcare Address [address] [place] [address] Care Team Providers Care Marine Safety Officer Name Role Phone Randi Tan APRN Primary Care Provider [phone] Encounter Details Date Type Department Care Team (Late st Contact Info) Description 11/19/2024 Outside Procedure External Location [address] [place] [address] Randi Tan APRN [address] [place] [address] Social History Tobacco Use Types [...] place to sleep or slept in a detention (including now)? No 12/28/2023 PHQ-9 Answer Date [...] any time in the past 12 m [facility], were you homeless or living in a detention (including now)? No 04/24/2024 Safety and Environment [...] th e electric, gas, oil, or water [employer] threatened to shut off services in your [...] COLOR AND DOPPLER 11/19/2024 2:46 PM EDT documented in this encounter Results * Echo, Adult Transthoracic Complete w/ Color and Doppler (11/19/2024 2:46 PM EDT) Anatomical Region Laterality Modality Ultrasound 11/19/2024 2:46 PM EDT Narrative 11/20/2024 12:01 [place] [address] Name: CORONA MIN Exam Date: 11/19/2024 : 1950 Age 74 years Gender: M Physician: RANDI TAN Facility: [facility] Facility HSV: Outpatient Exam: ECHO W SPEC [...] is with a valve area of 3.59 gift shop manager (Peak grad=6mmHg, Mean grad=3mmHg, LVOT jason=2.40cm, LVOT TVI=17.4cm, Ao TVI=21.9cm). The dimensionless index is 0.79. AV peak arrgnnhg=650sv/sec. There is mild aortic regurgitation. Tricuspid valve: [...] Thank you for referring CORONA MIN to [facility]. Legally authenticated by RIA Ang 2024-11-20 11:59:47 Procedure Note Provider, [facility] - 11/20/[address] [address] Name: CORONA MIN Exam Date: 11/19/2024 : 1950 Age 74 years Gender: M Physician: RANDI TAN Facility: [facility] Facility HSV: Outpatient Exam: ECHO W SPEC [...] is with a valve area of 3.59 gift shop manager (Peak grad=6mmHg, Mean grad=3mmHg, LVOT jason=2.40cm, LVOT TVI=17.4cm, Ao TVI=21.9cm). The dimensionless index is 0.79. AV peak ixmgjopv=957et/sec. There is mild aortic regurgitation. Tricuspid valve: [...] LA vol: 79.0mL SEBASTIEN: 43.9mL/mA (16-28ml/m2) Morgan Rodriuges MD Dictated By: MORGAN RODRIGUES Transcribed By: Transcribed On: 11/20/2024 11:59 AM Electronically signed by: MORGAN RODRIGUES 11/20/2024 Thank you for referring CORONA MNI to [facility]. Legally authenticated by RIA Ang 2024-11-20 11:59:47 us Randi Tan APRN CV ECHO PROCEDURES Final Re sult documented in this [...] documented as of this encounter Care Teams Marine Safety Officer Relationship Specialty Start Date End Date Randi Tan APRN [address] [place] [phone] PCP - General 09/26/20 documented as of this encounter
--- OUTSIDE RECORDS SUMMARY | 2025-02-08 09:19 | XMS_ITS | Encounter Summary ---
Author Organization Healthcare Address [address] [place] [address] Care Team Providers Care Rental Manager Name Role Phone Randi Mackenzie APRN Primary Care Provider [phone] [phone] Encounter Details Date Type Department Care Team ([facility] st Contact Info) Description 05/10/2022 Outside Procedure External Location [address] [place] [address] Provider, Dilia [place] Social History Tobacco Use Types Packs/Day Years [...] suspected to have Coronavirus/COVID-19? No / Unsure 04/19/2022 5:13 PM EST documented as of this encounter Plan of Treatment Not on file documented as of this encounter Procedures Procedure Name Priority Date/Time Associated Diagnosis Comments MR LUMBAR SPINE WO IV CONTRAST 05/10/2022 9:13 AM EST documented in this encounter Results * MR Lumbar Spine wo IV Contrast (05/10/2022 9:13 AM EST) Anatomical Region Laterality Modality L-spine Magnetic Resonan ce 05/10/2022 9:1 3 AM EST Narrative 05/10/2022 11:00 AM EST [address] [address] Name: CORONA MIN Exam Date: 05/10/2022 : 1950 Age 71 Gender: M Physician: HENRI PENA Facility: [facility] Facility HSV: Outpatient Exam: MRI LUMBAR SPINE W/O FINAL REPORT CLINICAL HISTORY: Chronic low back pain and bilat hip pain Surgery over 20 years ago No trauma COMPARISON: October 2018 FINDINGS: Multiplanar MR imaging of the lumbar spine was performed without contrast. There is mild lumbar scoliosis to the right. On the sagittal T2-weighted images,nubn-vy-[id number] decreased disc signal is seen at all levels. There is new increased signal within the disc at L2-L3. The adjacent cortex is preserved with abnormal bone marrow signal. Discitis cannot be excluded. Consider follow-up. There is moderate to severe disc space narrowing at all levels. There is minimal retrolisthesis of L3 on L4 and minimal anterolisthesis of L2 on L3, stable. There is no evidence of compression fracture. The conus has a normal appearance. T12-L1: Mild bulge. Ligamentum flavum hypertrophy and hypertrophic changes of the facets. Mild bilateral neural foraminal narrowing. No spinal canal stenosis. L1-2: Disc bulge/osteophyte complex. Hypertrophic changes of the facets with mild ligamentum flavum hypertrophy. No spinal canal stenosis. Moderate bilateral neural foraminal narrowing. L2-3: Moderate disc bulge/osteophyte complex. Mild spinal canal stenosis. Hypertrophic changes of the facets with minimal ligamentum flavum hypertrophy. Mild right and severe left neural foraminal narrowing. L3-4: Moderate disc bulge. Severe spinal canal stenosis, similar prior. Ligamentum flavum hypertrophy and hypertrophic changes of the facets. Severe right and moderate left neural foraminal narrowing. L4-5: Minimal disc/osteophyte complex. No spinal canal stenosis. Mild bilateral neural foraminal narrowing. Small hemilaminectomy on the right. L5-S1: There is no significant spinal canal stenosis or neural foraminal encroachment. IMPRESSION: Scoliosis and multilevel lumbar degenerative disc disease, similar to prior. New increased signal in the L2-L3 disc with mild abnormal bone marrow signal. Discitis cannot be excluded. Consider follow-up. Reviewed, Interpreted and Dictated by Kiesha Andino MD Transcribed by Bernardino Kirkpatrick Authenticated and [facility] Dictated By: KIESHA ANDINO Transcribed By: Transcribed On: 05/10/2022 10:48 AM Electronically signed by: KIESHA ANDINO 05/10/2022 Thank you for referring CORONA MIN to [facility]. Legally authenticated by SINA MCGOWAN 2022-05-10 10:48:29 Procedure Note Provider, [facility] - 05/10/2022 [place] [address] Name: CORONA MIN Exam Date: 05/10/2022 : 1950 Age 71 Gender: M Physician: HENRI PENA Facility: [facility] Facility HSV: Outpatient Exam: MRI LUMBAR SPINE W/O FINAL REPORT CLINICAL HISTORY: Chronic low back pain and bilat hip pain Surgery over 20 years ago No trauma COMPARISON: October 2018 FINDINGS: Multiplanar MR imaging of the lumbar spine was performed without contrast. There is mild lumbar scoliosis to the right. On the sagittal T2-weighted images,qucq-be-oldpcsfx decreased disc signal is seen at all levels. There is new increased signal within the disc at L2-L3. The adjacent cortex is preserved with abnormal bone marrow signal. Discitis cannot be excluded. Consider follow-up. There is moderate to severe disc space narrowing at all levels. There is minimal retrolisthesis of L3 on L4 and minimal anterolisthesis of L2 on L3, stable. There is no evidence of compression fracture. The conus has a normal appearance. T12-L1: Mild bulge. Ligamentum flavum hypertrophy and hypertrophic changes of the facets. Mild bilateral neural foraminal narrowing. No spinal canal stenosis. L1-2: Disc bulge/osteophyte complex. Hypertrophic changes of the facets with mild ligamentum flavum hypertrophy. No spinal canal stenosis. Moderate bilateral neural foraminal narrowing. L2-3: Moderate disc bulge/osteophyte complex. Mild spinal canal stenosis. Hypertrophic changes of the facets with minimal ligamentum flavum hypertrophy. Mild right and severe left neural foraminal narrowing. L3-4: Moderate disc bulge. Severe spinal canal stenosis, similar prior. Ligamentum flavum hypertrophy and hypertrophic changes of the facets. Severe right and moderate left neural foraminal narrowing. L4-5: Minimal disc/osteophyte complex. No spinal canal stenosis. Mild bilateral neural foraminal narrowing. Small hemilaminectomy on the right. L5-S1: There is no significant spinal canal stenosis or neural foraminal encroachment. IMPRESSION: Scoliosis and multilevel lumbar degenerative disc disease, similar to prior. New increased signal in the L2-L3 disc with mild abnormal bone marrow signal. Discitis cannot be excluded. Consider follow-up. Reviewed, Interpreted and Dictated by Kiesha Andino MD Transcribed by Bernardino Kirkpatrick Authenticated and [facility] Dictated By: KIESHA ANDINO Transcribed By: Transcribed On: 05/10/2022 10:48 AM Electronically signed by: KIESHA ANDINO 05/10/2022 Thank you for referring CORONA MIN to [facility]. Legally authenticated by SINA MCGOWAN 2022-05-10 10:48:29 us Generic [place] Provider IMG MRI PROCEDURES F inal Result documented in this encounter Visit Diagnoses Not on filedocumented in this encounter Additional Health Concerns Infection Onset Date Last Indicated Resolved Time COVID-19 Rule-Out 05/04/2023 05/04/2023 05/04/2023 9:55 PM EST COVID-19 Rule-Out 01/17/2024 01/17/2024 01/17/2024 8:20 PM EDT Assessment Noted Time A fall risk assessment has been complete d for the patient 04/20/2022 11:31 AM EST documented as of this encounter Care Teams Rental Manager Relationship Specialty Start Date End Date Randi Mackenzie, LEDY [address] [place] [address] PCP - General 09/26/20 documented as of this encounter
--- OUTSIDE RECORDS SUMMARY | 2025-02-08 09:19 | XMS_ITS | Encounter Summary ---
Author Organization Healthcare Address [address] [place] [address] Care Team Providers Care Gym Attendant Name Role Phone Angel Tan APRN Primary Care Provider [phone]- [phone] Encounter Details Date Type Department Care Team (Late st Contact Info) Description 09/26/2024 Outside Procedure External Location [address] [place] [address] Angel Tan APRN [address] [place] [address] Social History Tobacco Use Types [...] place to sleep or slept in a group home (including now)? No 12/28/2023 PHQ-9 Answer [...] any time in the past 12 m [facility], were you homeless or living in a group home (including now)? No 04/24/2024 Safety and [...] the past 12 months has th e [employer], gas, oil, or water company threatened to [...] Associated Diagnosis Comments XR CHEST 2 VIEWS 09/26/2024 12:1 5 PM EDT documented in this encounter Results * XR Chest 2 Views (09/26/2024 12:15 PM EDT) Anatomical Region Laterality Modality Chest Digital Radiogra phy 09/26/2024 12:1 5 PM EDT Narrative 09/26/2024 6:14 [place] [address] Name: CORONA MIN Exam Date: 09/26/2024 : 1950 Age 74 years Gender: M Physician: ANGEL TAN Facility: [facility] Facility HSV: Outpatient Exam: CHEST 2 VIEWS PA and lateral chest: 2 Views CLINICAL INDICATION: Male, 74 years old. shortness of breath COMPARISON: June 15, 2023 Findings: Trachea and mediastinum are midline. Cardiac silhouette is within normal limits. Left atrial appendage clip is noted. Lungs are hyperexpanded. There are small infiltrate or atelectasis seen within the left lower lung. Intraspinal catheter is noted. Impression: COPD with small left lower lung infiltrate or area of atelectasis Electronically signed by: Brianna Izquierdo MD 09/26/2024 06:10 PM EDT Dictated By: Brianna Izquierdo Transcribed By: Transcribed On: 09/26/2024 12:45 PM Electronically signed by: Brianna Izquierdo 09/26/2024 Thank you for referring CORONA MIN to [facility]. Legally authenticated by VICTOR MANUEL PEREZ 2024-09-26 12:45:00 Procedure Note Provider, Dilia [place] - 09/26/2024 [address] [place] [address] Name: COROAN MIN Exam Date: 09/26/2024 : 1950 Age 74 years Gender: M Physician: ANGEL TAN Facility: [facility] Facility HSV: Outpatient Exam: CHEST 2 VIEWS PA and lateral chest: 2 Views CLINICAL INDICATION: Male, 74 years old. shortness of breath COMPARISON: June 15, 2023 Findings: Trachea and mediastinum are midline. Cardiac silhouette is within normal limits. Left atrial appendage clip is noted. Lungs are hyperexpanded.There are small infiltrate or atelectasis seen within the left lower lung. Intraspinal catheter is noted. Impression: COPD with small left lower lung infiltrate or area of atelectasis Electronically signed by: Brianna Izquierdo MD 09/26/2024 06:10 PM EDT RP Dictated By: Brianna Izquierdo Transcribed By: Transcribed On: 09/26/2024 12:45 PM Electronically signed by: Brianna Izquierdo 09/26/2024 Thank you for referring CORONA MIN to [facility]. Legally authenticated by VICTOR MANUEL PEREZ 2024-09-26 12:45:00 Angel Tan ODD BUNDLE WORKER IMG XR PROCEDURES Final Res ult documented [...] documented as of this encounter Care Teams Gym Attendant Relationship Specialty Start Date End Date Angel Tan, ODD BUNDLE WORKER [address] [place] [address] PCP - General 09/26/20 documented as of this encounter
--- OUTSIDE RECORDS SUMMARY | 2025-02-08 09:20 | XMS_ITS | Encounter Summary ---
Author Organization Healthcare Address [address] [place] [address] Care Team Providers Care Welt Edge Rounder Name Role Phone Angel Tan APRN Primary Care Provider +1- [phone] Encounter Details Date Type Department Care Team ([facility] st Contact Info) Description 01/15/2022 Outside Procedure External Location [address] [place] [address] Angel Tan APRN [address] [place] [address] Social History Tobacco Use Types [...] suspected to have Coronavirus/COVID-19? No / Unsure 01/06/2022 9:47 AM EDT documented as of this encounter Plan of Treatment Not on file documented as of this encounter Procedures Procedure Name Priority Date/Time Associated Diagnosis Comments XR CHEST 2 VIEWS 01/15/2022 8:38 AM EDT documented in this encounter Results * XR Chest 2 Views (01/15/2022 8:38 AM EDT) Anatomical Region Laterality Modality Chest Radiographic Deanna ging 01/15/2022 8:38 AM EDT Narrative 01/15/2022 9:32 [place] [address] Name: CORONA MIN Exam Date: 01/15/2022 : 1950 Age 71 Gender: M Physician: ANGEL TAN Facility: [facility] Facility HSV: Outpatient Exam: CHEST 2 VIEWS 2 VIEW CHEST HISTORY: Midsternal chest pain, recent CABG COMPARISON: 09/28/2021 FINDINGS: The patient is status post median sternotomy. A left atrial appendage device is noted. The heart is normal in size. The mediastinum is unremarkable. There is bibasilar linear atelectasis. There is no focal consolidation. There is no pneumothorax. IMPRESSION: No acute cardiopulmonary process. Images reviewed, interpreted, and dictated by Dr. Harjit Silva. Transcribed by Carlene Henley PA-C Dictated By: Harjit Cornejo Transcribed By: Harjit Silva Transcribed On: 01/15/2022 9:21 AM Electronically signed by: Harjit Cornejo 01/15/2022 Thank you for referring CORONA MIN to [facility]. Legally authenticated by ZACHERY LYMAN 2022-01-15 09:21:19 Procedure Note Provider, Generic [place] - 01/15/2022 [place] [address] Name: CORONA MIN Exam Date: 01/15/2022 : 1950 Age 71 Gender: M Physician: ANGEL TAN Facility: [facility] Facility HSV: Outpatient Exam: CHEST 2 VIEWS 2 VIEW CHEST HISTORY: Midsternal chest pain, recent CABG COMPARISON: 09/28/2021 FINDINGS: The patient is status post median sternotomy. A left atrial appendage device is noted. The heart is normal in size. The mediastinumis unremarkable. There is bibasilar linear atelectasis. There is no focal consolidation. There is no pneumothorax. IMPRESSION: No acute cardiopulmonary process. Images reviewed, interpreted, and dictated by Dr. Harjit Silva. Transcribed by Carlene Henley PA-C Dictated By: Harjit Cornejo Transcribed By: Harjit Silva Transcribed On: 01/15/2022 9:21 AM Electronically signed by: Harjit Cornejo 01/15/2022 Thank you for referring CORNOA MIN to [facility]. Legally authenticated by ZACHERY LYMAN 2022-01-15 09:21:19 Angel Tan COFFEE FARMER IMG XR PROCEDURES Final Res ult documented in this encounter Visit Diagnoses Not on filedocumented in this encounter Additional Health Concerns Infection Onset Date Last Indicated Resolved Time COVID-19 Rule-Out 05/04/2023 05/04/2023 05/04/2023 9:55 PM EST COVID-19 Rule-Out 01/17/2024 01/17/2024 01/17/2024 8:20 PM EDT Assessment Noted Time A fall risk assessment has been complete d for the patient 01/06/2022 10:14 AM EDT documented as of this encounter Care Teams Welt Edge Rounder Relationship Specialty Start Date End Date Angel Tan APRN [address] [place] [address] PCP - General 09/26/20 documented as of this encounter
--- OUTSIDE RECORDS SUMMARY | 2025-02-08 09:20 | XMS_ITS | Encounter Summary ---
Author Organization Healthcare Address [address] [place] [address] Care Team Providers Care Production Line Name Role Phone Angel Tan APRN Primary Care Provider +1- [phone] Encounter Details Date Type Department Care Team ([facility] st Contact Info) Description 05/26/2023 Outside Procedure External Location [address] [place] [address] Angel Tan APRN [address] [place] [address] Social History Tobacco Use Types [...] Associated Diagnosis Comments XR CHEST 2 VIEWS 05/26/2023 11:4 5 AM EST documented in this encounter Results * XR Chest 2 Views (05/26/2023 11:45 AM EST) Anatomical Region Laterality Modality Chest Digital Radiogra phy 05/26/2023 11:4 5 AM EST Narrative 05/26/2023 1:39 [place] [address] Name: CORONA MIN Exam Date: 05/26/2023 : 1950 Age 72 Gender: M Physician: ANGEL TAN Facility: [facility] Facility HSV: Outpatient Exam: CHEST 2 VIEWS CHEST, 2 VIEWS HISTORY: Acute shortness of breath with cough COMPARISON: None FINDINGS: The heart and mediastinum are unremarkable. There is biapical pleural thickening. The lungs are otherwise clear without evidence of acute infiltrate or effusion.There is no pneumothorax. The patient is status post median sternotomy. Left atrial appendage clip is noted. There is an intraspinal catheter. IMPRESSION: No acute process. Images reviewed, interpreted and dictated by Dr. Rivers. Transcribed by Kris Ward PA-C Dictated By: DAVID RIVERS Transcribed By: David Rivers Transcribed On: 05/26/2023 1:22 PM Electronically signed by: DAVID RIVERS 05/26/2023 Thank you for referring CORONA MIN to [facility]. Legally authenticated by POPE DAVID Robin 2023-05-26 13:22:59 Procedure Note Provider, Generic [place] - 05/26/2023 [place] [address] Name: CORONA MIN Exam Date: 05/26/2023 : 1950 Age 72 Gender: M Physician: ANGEL TAN Facility: [facility] Facility HSV: Outpatient Exam: CHEST 2 VIEWS CHEST, 2 VIEWS HISTORY: Acute shortness of breath with cough COMPARISON: None FINDINGS: The heart and mediastinum are unremarkable. There is biapical pleural thickening. The lungs are otherwise clearwithout evidence of acute infiltrate or effusion.There is no pneumothorax. Thepatient is status post median sternotomy. Left atrial appendage clip is noted.There is an intraspinal catheter. IMPRESSION: No acute process. Images reviewed, interpreted and dictated by Dr. Rivers. Transcribed by Kris Ward PA-C Dictated By: DAVID RIVERS Transcribed By: David Rivers Transcribed On: 05/26/2023 1:22 PM Electronically signed by: DAVID RIVERS 05/26/2023 Thank you for referring CORONA MIN to [facility]. Legally authenticated by POPE DAVID Robin 2023-05-26 13:22:59 us Angel Tan BOILER TENDER IMG XR PROCEDURES Final Res ult documented [...] documented as of this encounter Care Teams Production Line Relationship Specialty Start Date End Date Angel Tan APRN [address] [place] [phone] PCP - General 09/26/20 documented as of this encounter
--- OUTSIDE RECORDS SUMMARY | 2025-02-08 09:20 | XMS_ITS | Encounter Summary ---
Author Organization Healthcare Address [address] [place] [address] Care Team Providers Care Head Turbine Operator Name Role Phone Angel Tan APRN Primary Care Provider Gely Carreon LPN Unavailable Unavailable Encounter Details Date Type Department Care Team (Late st Contact Info) Description 05/26/2021 Outside Procedure External Location [address] [place] [address] Angel Tan AGITATOR OPERATOR [address] [place] [address] Social History Tobacco Use Types [...] Name Priority Date/Time Associated Diagnosis Comments CT CHEST LIMITED HISTORICAL 05/26/2021 10:46 AM EST documented in this encounter Results * CT Chest Limited Historical (05/26/2021 10:46 AM EST) Anatomical Region Laterality Modality Chest Computed Tomogra phy 05/26/2021 10:4 6 AM EST Narrative 05/26/2021 2:59 PM EST [address] [address] Name: CORONA MIN Exam Date: 05/26/2021 : 1950 Age 70 Gender: M Physician: ANGEL TAN Facility: [facility] Facility HSV: Outpatient Exam: CT CHEST W/O CT SCAN OF THE CHEST WITHOUT CONTRAST COMPARISON: None. HISTORY: Unintentional weight loss. PROCEDURE: Axial images were obtained from the lung apex to the mid abdomen by computed tomography.This study was performed with techniques to keep radiation doses as low as reasonably achievable, (ALARA). FINDINGS: CHEST: There is no axillary adenopathy. There is no hilar or mediastinal adenopathy. Heart size is normal. There is no pericardial or pleural effusion. Limited images of the upper abdomen are unremarkable. Emphysematous changes are seen throughout the lungs. There is mild subpleural nodularity within the lung apices considered postinflammatory. Noncalcified pleural plaques are identified in the subpulmonic regions bilaterally. IMPRESSION: No evidence of primary neoplasm or intrathoracic metastasis. 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 Films reviewed , interpreted and dictated by Dr. Perez. Transcribed by Kris Ward PA-C. Dictated By: GLYNN PEREZ Transcribed By: Tesfaye Perez Transcribed On: 05/26/2021 2:47 PM Electronically signed by: GLYNN PEREZ 05/26/2021 Thank you for referring CORONA MIN to [facility]. Legally authenticated by CHRIS ZAMBRANO 2021-05-26 14:47:57 Procedure Note Provider, [facility] - 05/26/2021 [facility] [address] [place] [address] Name: CORONA MIN Exam Date: 05/26/2021 : 1950 Age 70 Gender: M Physician: ANGEL TAN Facility: [facility] Facility HSV: Outpatient Exam: CT CHEST W/O CT SCAN OF THE CHEST WITHOUT CONTRAST COMPARISON: None. HISTORY: Unintentional weight loss. PROCEDURE: Axial images were obtained from the lung apex to the midabdomen by computed tomography.This study was performed with techniques to keepradiation doses as low as reasonably achievable, (ALARA). FINDINGS: CHEST: There is no axillary adenopathy. There is no hilar or mediastinal adenopathy. Heart size is normal. There is no pericardial or pleuraleffusion. Limited images of the upper abdomen are unremarkable. Emphysematouschanges are seen throughout the lungs. There is mild subpleural nodularity withinthe lung apices considered postinflammatory. Noncalcified pleural plaquesare identified in the subpulmonic regions bilaterally. IMPRESSION: No evidence of primary neoplasm or intrathoracic metastasis. 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 Films reviewed , interpreted and dictated by Dr. Perez. Transcribed by Kris Ward PA-C. Dictated By: GLYNN PEREZ Transcribed By: Tesfaye Perez Transcribed On: 05/26/2021 2:47 PM Electronically signed by: GLYNN PEREZ 05/26/2021 Thank you for referring CORONA MIN to [facility]. Legally authenticated by CHRIS ZAMBRANO 2021-05-26 14:47:57 us Angel Tan AGITATOR OPERATOR IMG CT PROCEDURES Final Res ult documented [...] documented as of this encounter Care Teams Head Turbine Operator Relationship Specialty Start Date End Date Angel Tan APRN [address] [place] [address] PCP - General 09/26/20 Gely Carreon LPN [employer] [place] [address] TCM Nurse 09/02/21 10/02/21 documented as of this encounter
--- NOTE | 2025-02-08 09:30 | CT_ITS ---
FINAL REPORT TECHNIQUE: Thin section axial images were obtained through the lungs using a low-dose technique per lung cancer screening protocol. Reconstruction images were obtained using the axial data. Exam was performed using dose reduction technique. This study was performed with techniques to keep radiation doses as low as reasonably achievable (ALARA). Individualized dose reduction techniques using automated exposure control or adjustment of mA and/or kV according to the patient's size were employed. CLINICAL HISTORY: lung cancer screening quit 1 year ago smoked 2 ppd x 64 years COMPARISON: None FINDINGS: CTDLvol: 2.90 DLP: 115.68 Former smoker for 1 year 128 pack year history Lungs: Mild to moderate changes of centrilobular emphysema are present, particularly in the upper lobes. There is mild scarring present in the right lung base. No suspicious nodules. Lymph nodes: No thoracic lymphadenopathy. Mediastinum: Heart size is normal. Dense coronary artery calcifications are present. There is mild streak artifact from sternotomy wires. Pleura/pericardium: No pleural or pericardial effusion. Other: No acute abnormality in the upper abdomen. IMPRESSION: No suspicious pulmonary nodule or mass. Lung RADS: 1S, the S designation for prominent coronary artery calcifications. Recommendation: 1 year follow-up LDCT. Reviewed, Interpreted and Dictated by Dawit Valdez MD Transcribed by Eliza Ely Authenticated and [facility]
--- NOTE | 2025-02-08 10:00 | PC.NURSE ---
Pt could not do 6MWT, cant walk due to pain
[2025-02-08 10:15] VITALS: PULSE 60; PULSE 61
[2025-02-08] MEDS: ALBUTEROL 0.083% 2.5 MG/3 ML NEB IH (10:15)
== END 2025-02-08 23:59 | disposition home or self-care (01) ==
LOC: RAD 09:02
PROVIDERS: PCP Nurse Practitioner Family; Visit Provider Internal Medicine Pulmonary Disease
DX: Z12.2 Encounter for screening for malignant neoplasm of respiratory organs (principal); J43.2 Centrilobular emphysema; J98.4 Other disorders of lung; I25.10 Atherosclerotic heart disease of native coronary artery without angina pectoris; Z87.891 Personal history of nicotine dependence
CPT/HCPCS: 71271; 94060; 94640; 94726; 94729